=== PATIENT | male | born 1940 | race Caucasian/White ===

== ENCOUNTER 2019-07-16 16:34 | Emergency (ER) | payer MEDICARE ==
[2019-07-16] MEDS ORDERED: Adacel Vial IM ONE ×2 (17:08→17:19)
[2019-07-16] MEDS ORDERED: XYLOCAINE 1%/Epi 1:100000 MDV 20 ML IJ ONE (17:08)
[2019-07-16] MEDS ORDERED: XYLOCAINE 1%/Epi 1:100000 MDV 20 ML ONE (17:08)
--- NOTE | 2019-07-16 17:27 | ERPHSYRPT ---
- History of Present Illness Time Seen by Provider: 07/16/19 17:00 Source: patient Exam Limitations: no limitations Patient Subjective Stated Complaint: pt states that his bowels have moved today but not completely, pt states that he has smears of stool with blood, pt states that he has hemorrhoids bad, pt states that pain 9/10 pain that started today, pt has c/o of urination too, pt states that he see a urologist Triage Nursing Assessment: pt ambulated into the er, pt has hemorrhoid with trouble having bowel movement, pt states he has urinary retention, pt has laceration to the top of the rt hand, laceration measures 1.4 cm x 2 cm, vitals wnl Physician History: Patient has a history of hemorrhoids and he noticed today while straining to have bowel movements he began having pain at his anus and he felt hemorrhoids from what he remembered. While coming to the hospital, he cut the dorsum of his right hand with a direct blow, causing a small flap. Occurred: this afternoon Method of Injury: direct blow Quality: constant Severity of Pain-Max: none (dorsum of right hand) Severity of Pain-Current: moderate (anal area) Extremities Pain Location: hand: right (none currently, he has a cut to his dorsum of his right hand) Modifying Factors: Improves With: rest. Worsens With: movement Associated Symptoms: other (hemorrhoids that flared-up today), No back pain, No chills, No chest discomfort, No chest pain, No dyspnea, No fever, No jaw pain, No nausea, No neck pain, No sweating, No short of breath, No vomiting Allergies/Adverse Reactions: No Known Drug Allergies Allergy (Unverified 07/16/19 16:57) Home Medications: Calcium 500 mg PO DAILY 07/16/19 [History] Lisinopril 10 mg [Zestril 10 MG] 10 mg PO DAILY 07/16/19 [History] Multivitamin [Multivitamins] 1 cap PO DAILY 07/16/19 [History] Hx Tetanus, Diphtheria Vaccination/Date Given: Yes Hx Influenza Vaccination/Date Given: Yes Hx Pneumococcal Vaccination/Date Given: Yes Immunizations Up to Date: Yes - Review of Systems Constitutional: No Fever, No Chills, No Fatigue Eyes: No Eye Pain, No Vision Changes Ears, Nose, & Throat: No Epistaxis, No Mouth Pain, No Painful Swallowing Respiratory: No Cough, No Dyspnea Cardiac: No Chest Pain, No Edema, No Palpitations, No Syncope Abdominal/Gastrointestinal: Constipation, No Abdominal Pain, No Nausea, No Vomiting, No Diarrhea, No Hematemesis, No Hematochezia, No Melena Genitourinary Symptoms: No Dysuria, No Frequency, No Hematuria, No Flank Pain Musculoskeletal: No Back Pain, No Neck Pain Skin: No Pruritis, No Rash Neurological: No Focal Weakness, No Lethargy, No Parasthesia, No Sensory Changes , No Tremors Psychological: No Anxiety Endocrine: No Polydipsia Hematologic/Lymphatic: No Easy Bleeding, No Easy Bruising All Other Systems: Reviewed and Negative - Past Medical History Pertinent Past Medical History: Yes (BPH) Neurological History: No Pertinent History ENT History: Cataracts Cardiac History: No Pertinent History Respiratory History: No Pertinent History Endocrine Medical History: No Pertinent History Musculoskeletal History: No Pertinent History GI Medical History: Hemorrhoids History: Other Psycho-Social History: No Pertinent History Male Reproductive Disorders: Prostate Problems Other Medical History: enlarged prostate - Past Surgical History Past Surgical History: Yes Gastrointestinal: Cholecystectomy - Social History Smoking Status: Former smoker How long have you smoked: 65 Exposure to second hand smoke: No Drug Use: none Patient Lives Alone: No - Nursing Vital Signs Nursing Vital Signs: Initial Vital Signs Temperature 97.1 F 07/16/19 16:44 Pulse Rate 92 H 07/16/19 16:44 Respiratory Rate 20 07/16/19 16:44 Blood Pressure 114/74 07/16/19 16:44 O2 Sat by Pulse Oximetry 93 L 07/16/19 16:44 Pain Scale Pain Intensity 5 - Physical Exam General Appearance: no apparent distress Eyes, Ears, Nose, Throat Exam: pharynx normal, moist mucous membranes Neck Exam: normal inspection, non-tender, supple, full range of motion, No Brudzinski Cardiovascular/Respiratory Exam: chest non-tender, normal breath sounds, regular rate/rhythm, heart sounds normal, no ecchymosis, no respiratory distress Abdominal Exam: non-tender, soft, No no organomegaly, No guarding, No tenderness Back Exam: other (Anorectal exam: multiple external thrombosed hemorrhoids, tender to palpation), No normal inspection, No CVA tenderness, No vertebral tenderness Shoulder Exam: normal inspection, non-tender, no evidence of injury, normal ROM Elbow/Forearm Exam: normal inspection, non-tender, no evidence of injury, normal ROM, No ecchymosis Wrist Exam: normal inspection, non-tender, no evidence of injury, normal ROM, No ecchymosis Hand Exam: normal inspection, non-tender, normal ROM, laceration (2.5 cm superficial flap laceration on the dorsum of the hand with no active bleeding, no contamination ), No abrasions, No bone tenderness, No infection, No limited ROM, No nail injury, No soft tissue tenderness, No swelling Neuro/Tendon Exam: normal sensation, normal motor functions, normal tendon functions, responds to pain, no evidence tendon injury Mental Status Exam: alert, oriented x 3, cooperative Skin Exam: normal color, warm, dry, No rash, No petechiae, No jaundice SpO2 Interpretation: normal SpO2: 93 O2 Delivery: Room Air Procedures - Laceration/Wound Repair Right Dorsal Hand Wound Location: Right, hand Wound Length (cm): 2.5 Wound's Depth, Shape: superficial, flap Wound Explored: clean Irrigated: Yes Hibiclens Prep: Yes Volume Anesthetic (ccs): 0 Wound Debrided: none Wound Repaired With: Dermabond Layer Closure?: No Sterile Dressing Applied?: Yes Splint Applied?: No Sling Applied?: No - Additional Procedures Progress: After informed consent obtained, Local anesthesia performed using 1% lidocaine with epinephrine, with a total of 3 mL used into 3 separate external hemorrhoids. One small incision was made individually into each of the 3 external thrombosed hemorrhoids, with evacuation of small clots and blood. Bleeding controlled with 4 x 4 gauze. Patient tolerated procedure well, no complications. - Course Nursing assessment & vital signs reviewed: Yes Ordered Tests: Medication Summary Generic Name Dose Route Start Last Admin Trade Name Freq PRN Reason Stop Dose Admin Docusate Sodium 100 mg 07/17/19 10:00 Colace 100 Mg PO 08/16/19 09:59 DAILY JESSY Discontinued Medications Generic Name Dose Route Start Last Admin Trade Name Freq PRN Reason Stop Dose Admin Diphtheria/Tetanus/Acell Pertussis 0.5 ml 07/16/19 17:08 07/16/19 17:24 Adacel Vial IM 07/16/19 17:09 0.5 ml .ONCE ONE Administration Diphtheria/Tetanus/Acell Pertussis Confirm 07/16/19 17:19 Adacel Vial Administered 07/16/19 17:20 Dose 0.5 ml IM .STK-MED ONE Docusate Sodium Confirm 07/16/19 17:31 Colace 100 Mg Administered 07/16/19 17:32 Dose 100 mg .ROUTE .STK-MED ONE Lidocaine/Epinephrine 5 ml 07/16/19 17:08 07/16/19 17:23 Xylocaine 1%/Epi 1:[id number] Mdv 20 Ml IJ 07/16/19 17:09 5 ml STAT ONE Administration Lidocaine/Epinephrine Confirm 07/16/19 17:08 Xylocaine 1%/Epi 1:232620 Mdv 20 Ml Administered 07/16/19 17:09 Dose 1 ml .ROUTE .STK-MED ONE - Progress Progress: improved Progress Note: 07/16/19 17:28 Patient feeling better after Lidocaine injection and evacuation of clots from hemorrhoids Counseled pt/family regarding: diagnosis, need for follow-up - Departure Departure Disposition: Home Clinical Impression: External thrombosed hemorrhoids Laceration of hand Qualifiers: Encounter type: initial encounter Foreign body presence: without foreign body Laterality: right Qualified Code(s): S61.411A - Laceration without foreign body of right hand, initial encounter Condition: Good Critical Care Time: No Referrals: CASEY AGUILA [Primary Care Provider] - 07/17/19 HOOD SALGUERO MD [ASSOCIATE STAFF] - 07/17/19 (General Surgeon for your reference) Instructions: Hemorrhoids (DC), Laceration Repair With Glue (DC), Hemorrhoidectomy (DC), Tdap Vaccine, How to Do a Sitz Bath Additional Instructions: Do Sitz baths 3 to 4 times a day for the next three days. Try not to strain with bowel movements. Follow-up with General Surgery in the morning of 2018 to continue evaluation and consider treatment options for your hemorrhoids. Take the stool softener as directed. Expect to have some mild bleeding, but if your feel you are bleeding too much and saturating too many 4x4s, return immediately back to the emergency department for immediate re- evaluation. return immediately back to the emergency department if any worse at any time or any new concerning signs or symptoms that were not present at the emergency department occur for immediate reevaluation in the emergency department. Prescriptions: Docusate Sodium 100 mg [Colace 100 MG] 100 mg PO BID #20 cap
[2019-07-16 17:31] VITALS: BP 108/76; PULSE 79
[2019-07-16] MEDS ORDERED: Colace 100 MG ONE (17:31)
[2019-07-16 17:35] VITALS: O2SAT 93
[2019-07-17] MEDS ORDERED: Colace 100 MG PO SCH (10:00)
== END 2019-07-16 17:40 | disposition home or self-care (01) ==
LOC: ED 16:34
DX: K64.5 Perianal venous thrombosis (principal); S61.411A Laceration without foreign body of right hand, initial encounter; W22.8XXA Striking against or struck by other objects, initial encounter; Y93.9 Activity, unspecified; M79.641 Pain in right hand; Z79.899 Other long term (current) drug therapy
CPT/HCPCS: 12001; 90471; 90715; 96372; 99284; A9270-GY

== ENCOUNTER 2019-08-07 16:25 | Emergency (ER) | payer MEDICARE ==
[2019-08-07 16:38] VITALS: BP 158/113; PULSE 82; O2SAT 96
--- NOTE | 2019-08-07 16:48 | ERPHSYRPT ---
- History of Present Illness Time Seen by Provider: 08/07/19 16:35 Source: patient Exam Limitations: no limitations Patient Subjective Stated Complaint: Dr. Burnham instructed the patient to remove his cordoba after 10 days which was today, pt has an enlarged prostated and has pain when he tries to urinate but only dribbles, Dr. Burnham instructed him to come to the ER and have another cordoba placed Triage Nursing Assessment: Pt walked into the ER, hypertensive, rates pain 9.5/ 10 when trying to urinate, pulses normal, lungs clear, no edema, no other issues at this time Physician History: Patient had a cordoba catheter in place for 10 days due to having an enlarged prostate. He removed it today, but has not been able to void well. Patient was referred to the emergency department by his urologist, Dr Burnham, to have placement of another catheter placed. Patient has been dribbling urine without a strong stream throughout the day. Timing/Duration: hour(s) (11), other (after removal of his cordoba catheter on 07/2019 @ 06:00) Quality: other (no pain) Onset Location: suprapubic Pain Radiation: none Severity of Pain-Max: mild Severity of Pain-Current: none Modifying Factors: Worsens With: urinating Associated Symptoms: No abdominal pain, No fever, No chills, No diaphoresis, No nausea, No vomiting, No dysuria, No nocturia, No polyuria, No urinary frequency , No loss of bladder control, No lower back pain, No lumps, No mass, No swelling , No syncope Prior abdominal problems: similar symptoms (had a cordoba catheter in place for [address] Burnham, Urologist) Sexual intercourse history: non-contributory Allergies/Adverse Reactions: No Known Drug Allergies Allergy (Verified 08/07/19 16:37) Home Medications: Calcium 500 mg PO DAILY 07/16/19 [History] Lisinopril 10 mg [Zestril 10 MG] 10 mg PO DAILY 07/16/19 [History] Multivitamin [Multivitamins] 1 cap PO DAILY 07/16/19 [History] Bicalutamide 50 mg PO DAILY 08/07/19 [History] Hx Tetanus, Diphtheria Vaccination/Date Given: Yes Hx Influenza Vaccination/Date Given: Yes Hx Pneumococcal Vaccination/Date Given: Yes - Past Medical History Pertinent Past Medical History: Yes (BPH) Neurological History: No Pertinent History ENT History: Cataracts Cardiac History: No Pertinent History Respiratory History: No Pertinent History Endocrine Medical History: No Pertinent History Musculoskeletal History: No Pertinent History GI Medical History: Hemorrhoids History: Other Psycho-Social History: No Pertinent History Male Reproductive Disorders: Prostate Problems Other Medical History: enlarged prostate - Past Surgical History Past Surgical History: Yes Gastrointestinal: Cholecystectomy - Social History Smoking Status: Former smoker How long have you smoked: 65 Exposure to second hand smoke: No Drug Use: none Patient Lives Alone: No - Review of Systems Constitutional: No Fever, No Chills, No Fatigue Eyes: No Eye Pain, No Vision Changes Ears, Nose, & Throat: No Mouth Swelling, No Throat Swelling, No Painful Swallowing Respiratory: No Cough, No Dyspnea Cardiac: No Chest Pain, No Palpitations, No Syncope Abdominal/Gastrointestinal: No Nausea, No Vomiting, No Diarrhea, No Constipation , No Hematemesis, No Hematochezia, No Melena Genitourinary Symptoms: Frequency, Hesitancy, Urgency, Urinary Retention, No Hematuria, No Flank Pain Musculoskeletal: No Back Pain, No Neck Pain, No Myalgias Skin: No Pruritis, No Rash Neurological: No Dizziness, No Focal Weakness, No Headache, No Sensory Changes Psychological: No Anxiety Endocrine: No Excessive Sweating Hematologic/Lymphatic: No Easy Bleeding, No Easy Bruising All Other Systems: Reviewed and Negative - Nursing Vital Signs Nursing Vital Signs: Initial Vital Signs Temperature 97.6 F 08/07/19 16:30 Pulse Rate 82 08/07/19 16:30 Blood Pressure 158/113 08/07/19 16:30 O2 Sat by Pulse Oximetry 96 08/07/19 16:30 Pain Scale Pain Intensity 9 - Physical Exam General Appearance: no apparent distress, alert Eye Exam: PERRL/EOMI, eyes nml inspection, No scleral icterus, No pale conjunctivae Ears, Nose, Throat Exam: pharynx normal, moist mucous membranes Neck Exam: normal inspection, non-tender, supple, full range of motion, No meningismus, No Brudzinski Respiratory Exam: normal breath sounds, lungs clear, airway intact, No chest tenderness, No respiratory distress, No crackles/rales, No rhonchi, No wheezing , No stridor Cardiovascular Exam: regular rate/rhythm, normal heart sounds, normal peripheral pulses, capillary refill <2 sec Gastrointestinal/Abdomen Exam: soft, normal bowel sounds, No tenderness, No distention, No mass, No guarding, No rebound Male Genital Exam: normal genitalia, no hernia, uncircumcised (examination chaperoned by Saritha Rutherford RN), No bleeding, No epididymal tenderness, No erythema, No hydrocele, No hernia mass, No inguinal tenderness, No scrotum tenderness (R), No scrotum tenderness (L), No testicular tenderness (R), No testicular tenderness (L), No urethral discharge, No circumcised Back Exam: normal inspection, No CVA tenderness, No vertebral tenderness, No rash Extremity Exam: normal inspection, normal range of motion, pelvis stable, No calf tenderness, No fatuma's sign, No swelling Neurologic Exam: alert, oriented x 3, cooperative, research scientist II-XII nml as tested, normal mood/affect, sensation nml Skin Exam: normal color, warm, dry, No rash, No petechiae, No jaundice, No cyanosis Lymphatic Exam: No axilla node tender (R), No inguinal node tender (L) SpO2 Interpretation: normal SpO2: 96 O2 Delivery: Room Air Ordered Tests: Active Orders 24 hr Category Date Time Status Catheter-Waite Cordoba STAT Care 08/07/19 16:42 Active CULTURE,URINE Stat Lab 08/07/19 16:57 Ordered UA W/RFX UR CULTURE Stat Lab 08/07/19 16:57 Completed Medication Summary Generic Name Dose Route Start Last Admin Trade Name Freq PRN Reason Stop Dose Admin Trimethoprim/Sulfamethoxazole 1 tab 08/07/19 17:36 Bactrim Ds Tablet PO 08/07/19 17:37 STAT STA Discontinued Medications Generic Name Dose Route Start Last Admin Trade Name Freq PRN Reason Stop Dose Admin Trimethoprim/Sulfamethoxazole Confirm 08/07/19 17:31 Bactrim Ds Tablet Administered 08/07/19 17:32 Dose 1 tab PO .STK-MED ONE Lab/Rad Data: Laboratory Results 08/07/19 Range/Units 16:57 Urine Color YELLOW (YELLOW) Urine Appearance CLOUDY (CLEAR) Urine pH 6.0 (5-6) Ur Specific Rufus 1.006 (1.005-1.025) Urine Protein 100 (Negative) Urine Ketones NEGATIVE (NEGATIVE) Urine Blood MODERATE (0-5) Mauricio/ul Urine Nitrite POSITIVE (NEGATIVE) Urine Bilirubin NEGATIVE (NEGATIVE) Urine Urobilinogen NEGATIVE (0-1) mg/dL Ur Leukocyte Esterase LARGE (NEGATIVE) Urine WBC (Auto) >100 (0-5) /HPF Urine RBC (Auto) 26-50 (0-2) /HPF U Epithel Cells (Auto) NONE (FEW) /HPF Urine Bacteria (Auto) MODERATE (NEGATIVE) /HPF Urine Mucus (Auto) SLIGHT (NEGATIVE) /HPF Urine Culture Reflexed ORDERED SEPARATELY (NO) Urine Glucose NEGATIVE (NEGATIVE) mg/dL - Progress Progress: improved Progress Note: 08/07/19 16:53 Patient feels much better with the cordoba catheter in place. 150cc of yellow urine returned. 08/07/19 16:55 05/20/2016: Urine Culture: No growth 08/07/19 17:45 Patient feels well. With his symptoms, duration of Cordoba catheter and findings after catheter placement and urinalysis, patient will be treated for a cystitis. Patient does not require inpatient admission at this time. Counseled pt/family regarding: lab results, diagnosis, need for follow-up - Departure Departure Disposition: Home Clinical Impression: Urinary retention, Essential hypertension Acute cystitis Qualifiers: Hematuria presence: without hematuria Qualified Code(s): N30.00 - Acute cystitis without hematuria Condition: Good Critical Care Time: No Referrals: CASEY AGUILA [Primary Care Provider] - 08/09/19 SANTI BURNHAM [COURTESY STAFF] - 08/08/19 Instructions: Urinary Retention (DC), Acute Cystitis (DC), Urinary Tract Infection, Adult (DC), How to Care for Your Cordoba Catheter, Male Additional Instructions: Discharge/Care Plan ANNMARIE KULKARNI was seen on 08/07/19 in the Emergency Room. The patient was counseled regarding Diagnosis and Lab results with need for follow up and when to return to the Emergency Room. Prescriptions given: Discharge Note I have spoken with the patient and/or caregivers. I have explained the patient' s condition, diagnosis and treatment plan based on the information available to me at this time. I have answered the patient's and/or caregiver's questions and addressed any concerns. The patient and/or caregivers have as good understanding of the patient's diagnosis, condition and treatment plan as can be expected at this point. The vital signs have been stable. The patient's condition is stable and appropriate for discharge from the emergency department. The patient will pursue further outpatient evaluation with the primary care physician or other designated or consulting physician as outlined in the discharge instructions. The patient and/or caregivers are agreeable to this plan of care and follow-up instructions have been explained in detail. The patient and/or caregivers have received these instruction. The patient/and or caregivers are aware that any significant change in condition or worsening of symptoms should prompt an immediate return to this or the closest emergency department or call [address]. [address] Burnham on 08/08/2019 to discuss how long he wants your Cordoba Catheter in place. Follow-up your urine culture results in 2 days. Prescriptions: Smz/Tmp Ds Tablet [Bactrim Ds Tablet] 1 tab PO Q12H #10 tablet
[2019-08-07 17:26] LABS: Appearance CLOUDY (CLEAR); Bacteria MODERATE /HPF (NEGATIVE); Bilirubin NEGATIVE (NEGATIVE); Blood MODERATE Ery/ul (0-5); Glucose NEGATIVE (NEGATIVE); Ketones NEGATIVE (NEGATIVE); Leukocyte Esterase LARGE (NEGATIVE); Mucus SLIGHT /HPF (NEGATIVE); Nitrite POSITIVE (NEGATIVE); Protein,Urine Dip 100 (Negative); RBC 26-50 /HPF (0-2); Specific Gravity 1.006 (1.005-1.025); Urobilinogen NEGATIVE mg/dL (0-1); WBC >100 /HPF (0-5)
[2019-08-07] MEDS ORDERED: BACTRIM DS TABLET PO ONE ×2 (17:31→17:37)
[2019-08-07] MEDS ORDERED: BACTRIM DS TABLET PO STA (17:36)
== END 2019-08-07 17:51 | disposition home or self-care (01) ==
LOC: ED 16:25
DX: N30.00 Acute cystitis without hematuria (principal); R33.9 Retention of urine, unspecified; I10 Essential (primary) hypertension; Z46.6 Encounter for fitting and adjustment of urinary device
CPT/HCPCS: 51702; 81001; 87077; 87086; 87186; 99284; A9270-GY

== ENCOUNTER 2021-06-24 18:38 | Emergency (ER) | payer MEDICARE ==
[2021-06-24] MEDS ORDERED: Adacel Vial IM ONE ×2 (19:11→19:17)
--- NOTE | 2021-06-24 19:11 | ERPHSYRPT ---
- History of Present Illness Time Seen by Provider: 06/24/21 19:00 Source: patient Exam Limitations: no limitations Patient Subjective Stated Complaint: finger injury Triage Nursing Assessment: Patient ambulated back to ED and transferred self to bed. Patient A+O X3. Patient's skin pink, warm and dry. Patient complains of finger injury during a fall while taking out trash. Patient has open wound to right 3rd finger with bone and tendonis material showing. Patient complains of pain to right hand 3rd digit constant aching pain 8/10. Physician History: Patient is a 81-year-old male presents to our ED for evaluation of a right long finger digit injury. Patient states he was at home taking out the trash when his foot got caught on something causing him to fall forward. Injury occurred just prior to arrival. Pain described as an ache that is localized. No radiation. Patient states there is exposed tendon. No other injuries reported. No BHT or LOC. The fall was not related to any neuro or cardiovascular sy mptomology. The fall was not preceded by chest pain or shortness of breath. No dizziness. No numbness tingling or weakness. Tetanus is not up-to-date. Symptoms are mild to moderate in intensity. Movement worsens symptoms. Pain improved with rest. He voices no other complaints concerns at this time. Occurred: just prior to arrival Method of Injury: fell Quality: constant Severity of Pain-Max: moderate Severity of Pain-Current: mild Extremities Pain Location: 3rd finger: right Modifying Factors: Improves With: immobilization, movement Associated Symptoms: none Allergies/Adverse Reactions: No Known Drug Allergies Allergy (Verified 06/24/21 18:43) Home Medications: Calcium 500 mg PO DAILY 07/16/19 [History] Lisinopril 10 mg [Zestril 10 MG] 10 mg PO DAILY 07/16/19 [History] Multivitamin [Multivitamins] 1 cap PO DAILY 07/16/19 [History] Bicalutamide 50 mg PO DAILY 08/07/19 [History] Hx Tetanus, Diphtheria Vaccination/Date Given: No (unsure) Hx Influenza Vaccination/Date Given: Yes Hx Pneumococcal Vaccination/Date Given: Yes Immunizations Up to Date: Yes Travel Risk - International Travel Have you traveled outside of the country in past 3 weeks: No - Coronavirus Screening Are you exhibiting any of the following symptoms?: No Close contact with a COVID-19 positive Pt in past 14-21 Days: No - Vaccine Status Have you recieved a Covid-19 vaccination: Yes 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: [employer] - Vaccination Dates Date of 2cond Vaccination (if applicable): October 2020 - Review of Systems Constitutional: No Symptoms, No Fever, No Chills Eyes: No Symptoms Ears, Nose, & Throat: No Symptoms Respiratory: No Symptoms, No Cough, No Dyspnea Cardiac: No Symptoms, No Chest Pain, No Edema, No Syncope Abdominal/Gastrointestinal: No Symptoms, No Abdominal Pain, No Nausea, No Vomiting, No Diarrhea Genitourinary Symptoms: No Symptoms, No Dysuria Musculoskeletal: No Symptoms, No Back Pain, No Neck Pain Skin: No Symptoms, No Rash Neurological: No Symptoms, No Dizziness, No Focal Weakness, No Sensory Changes Psychological: No Symptoms Endocrine: No Symptoms Hematologic/Lymphatic: No Symptoms Immunological/Allergic: No Symptoms All Other Systems: Reviewed and Negative - Past Medical History Pertinent Past Medical History: Yes (BPH) Neurological History: No Pertinent History ENT History: Cataracts Cardiac History: No Pertinent History Respiratory History: No Pertinent History Endocrine Medical History: No Pertinent History Musculoskeletal History: No Pertinent History GI Medical History: Hemorrhoids History: Other Psycho-Social History: No Pertinent History Male Reproductive Disorders: Prostate Problems Other Medical History: enlarged prostate - Past Surgical History Past Surgical History: Yes Gastrointestinal: Cholecystectomy - Social History Smoking Status: Former smoker How long have you smoked: 65 Exposure to second hand smoke: No Drug Use: none Patient Lives Alone: No - Nursing Vital Signs Nursing Vital Signs: Initial Vital Signs Temperature 98.2 F 06/24/21 18:44 Pulse Rate 64 06/24/21 18:44 Respiratory Rate 18 06/24/21 18:44 Blood Pressure 159/90 06/24/21 18:44 O2 Sat by Pulse Oximetry 94 L 06/24/21 18:44 Pain Scale Pain Intensity 6 - Physical Exam General Appearance: no apparent distress, alert Eyes, Ears, Nose, Throat Exam: normal ENT inspection, TMs normal, pharynx normal, moist mucous membranes Neck Exam: non-tender, supple Cardiovascular/Respiratory Exam: chest non-tender, normal breath sounds, regular rate/rhythm, heart sounds normal, no respiratory distress Abdominal Exam: non-tender, soft, No guarding, No tenderness Back Exam: normal inspection, normal range of motion, No vertebral tenderness Shoulder Exam: normal inspection, non-tender, no evidence of injury, normal ROM Elbow/Forearm Exam: normal inspection, non-tender, no evidence of injury, normal ROM Wrist Exam: normal inspection, non-tender, no evidence of injury, normal ROM Hand Exam: deformity (Right third digit PIP joint is dorsally dislocated. There is a laceration at its flexor crease with exposed flexor tendon. The digit is neurovascular intact distally. Compartments are soft. Cap refill less than 2 seconds.), laceration (There is a laceration at the volar aspect of the right fifth digit just over the PIP joint. This digit is also neurovascular intact distally. Compartments are soft. Cap refill less than 2 seconds. Radial pulse palpable.) Neuro/Tendon Exam: normal sensation, normal motor functions, normal tendon functions Mental Status Exam: alert, oriented x 3, cooperative Skin Exam: normal color, warm, dry SpO2 Interpretation: normal SpO2: 94 O2 Delivery: Room Air Procedures - Joint Reduction Time of Procedure: 19:18 Joint Reduction Site: Right, 3rd digit Conscious Sedation: No Reduction Attempts: 1 Pre-Procedure Neurovascular Exam: neurovascular intact, well perfused, no neuro deficit Post Procedure Neurovascular Exam: neurovascular intact, good alignment Post Joint Reduction Film: no fracture seen Progress: Patient neurovascular intact preprocedure. Patient neurovascular intact post procedure. The hand and fingers are pink warm and well-perfused. - Laceration/Wound Repair Finger Time of Procedure: 19:50 Wound Location: Right (2 cm laceration to the proximal flexor crease right middle finger and distal flexor crease fifth digit.) Wound Length (cm): 2 Wound's Depth, Shape: superficial Wound Explored: clean Irrigated: Yes Hibiclens Prep: Yes Anesthesia: digital block (Digital block of fifth and third digit.) Volume Anesthetic (ccs): 4 Wound Debrided: minimal Wound Repaired With: sutures Suture Size/Type: 5-0 Number of Sutures: 10 Layer Closure?: No Sterile Dressing Applied?: Yes Splint Applied?: Yes Type of Splint Applied: AlumaFoam splinting of both fifth and third digit. Sling Applied?: Yes Progress: Patient neurovascular tact preprocedure. Patient neurovascular tact post procedure. 06/24/21 19:52 - Course Nursing assessment & vital signs reviewed: Yes - Radiology Exams Hand X-ray Interpretation: Interpreted by me (Volar dislocation of third digit PIP joint. There appears to be a small fracture fragment at the base of the middle phalanx volar aspect.) Other X-ray Interpretation: Interpreted by me (Right hand middle finger PIP joint dislocation successfully reduced. Small fracture fragment at base of middle phalanx volar aspect.) Ordered Tests: Active Orders 24 hr Category Date Time Status Splint STAT Care 06/24/21 19:54 Active Wound Care STAT Care 06/24/21 19:47 Active HAND (MINIMUM 3 VIEWS) Stat Exams 06/24/21 Ordered HAND (MINIMUM 3 VIEWS) Stat Exams 06/24/21 18:45 Ordered Medication Summary Discontinued Medications Generic Name Dose Route Start Last Admin Trade Name Freq PRN Reason Stop Dose Admin Bacitracin Zinc 0.9 gm 06/24/21 19:47 06/24/21 19:49 Baciguent Packet TP 06/24/21 19:48 0.9 gm STAT ONE Administration Bacitracin Zinc Confirm 06/24/21 19:48 Baciguent Packet Administered 06/24/21 19:49 Dose 1 gm .ROUTE .STK-MED ONE Diphtheria/Tetanus/Acell Pertussis 0.5 ml 06/24/21 19:11 06/24/21 19:18 Adacel Vial IM 06/24/21 19:12 0.5 ml .ONCE ONE Administration Diphtheria/Tetanus/Acell Pertussis Confirm 06/24/21 19:17 Adacel Vial Administered 06/24/21 19:18 Dose 0.5 ml IM .STK-MED ONE Lidocaine HCl 5 ml 06/24/21 19:16 06/24/21 19:18 Xylocaine 1% Hcl 20 Ml Mdv IJ 06/24/21 19:17 5 ml STAT ONE Administration Lidocaine HCl Confirm 06/24/21 19:17 Xylocaine 1% Hcl 20 Ml Mdv Administered 06/24/21 19:18 Dose 5 ml .ROUTE .STK-MED ONE - Progress Progress: improved Progress Note: 81-year-old male status post mechanical fall. Patient has a dorsally dislocated right third digit PIP joint. Joint was successfully reduced. No fractures. The associated laceration was repaired. Superficial laceration of right fifth digit was also repaired. 5 simple interrupted sutures using 5-0 nylon were used to repair each laceration. Patient neurovascular intact pre and post procedure. Pain well controlled. We will forward a prescription for antibiotic the patient's pharmacy. Patient will be referred to orthopedics for follow-up. Plan of care discussed with patient. He agrees to follow-up with orthopedics tomorrow as recommended. He voices no other complaints concerns at this time. Will discharge home. Portions of this note were created with voice recognition technology. There may be grammatical, spelling, punctuation or sound alike errors 06/24/21 19:23 06/24/21 20:03 Counseled pt/family regarding: diagnosis, need for follow-up, rad results - Departure Departure Disposition: Home Clinical Impression: Fall, Laceration, Finger dislocation Condition: Stable Critical Care Time: No Referrals: VIRY SANCHES MD [Primary Care Provider] - Additional Instructions: Discharge/Care Plan ANNMARIE KULKARNI was seen on 06/24/21 in the Emergency Room. The patient was counseled regarding Diagnosis,Lab results, Imaging studies, need for follow up and when to return to the Emergency Room. Prescriptions given: Discharge Note I have spoken with the patient and/or caregivers. I have explained the patient's condition, diagnosis and treatment plan based on the information available to me at this time. I have answered the patient's and/or caregiver's questions and addressed any concerns. The patient and/or caregivers have as good understanding of the patient's diagnosis, condition and treatment plan as can be expected at this point. The vital signs have been stable. The patient's condition is stable and appropriate for discharge from the emergency department. The patient will pursue further outpatient evaluation with the primary care physician or other designated or consulting physician as outlined in the discharge instructions. The patient and/or caregivers are agreeable to this plan of care and follow-up instructions have been explained in detail. The patient and/or caregivers have received these instruction. The patient/and or caregivers are aware that any significant change in condition or worsening of symptoms should prompt an immediate return to this or the closest emergency department or call 911. Prescriptions: Cephalexin Mh 500 mg [Keflex 500 mg] 500 mg PO TID #21 cap Outpatient Orders: Ortho Referral Time Frame: 1 Day, Facility: [facility] Hosp, Location: ORTHO CLINIC
[2021-06-24] MEDS ORDERED: XYLOCAINE 1% HCL 20 ML MDV IJ ONE (19:16)
[2021-06-24] MEDS ORDERED: XYLOCAINE 1% HCL 20 ML MDV ONE (19:17)
[2021-06-24 19:47] VITALS: BP 127/90; PULSE 65
[2021-06-24] MEDS ORDERED: BACIGUENT PACKET TP ONE (19:47)
[2021-06-24 19:48] VITALS: O2SAT 94
[2021-06-24] MEDS ORDERED: BACIGUENT PACKET ONE (19:48)
--- NOTE | 2021-06-25 08:51 | XRAY ---
Indication: Pain following fall. Comparison: None 2 view right hand demonstrates 3rd PIP dislocation with distal phalanx dislocated posteriorly with soft tissue swelling. Elsewhere osteopenia. Remaining hand unremarkable.
--- NOTE | 2021-06-25 08:55 | XRAY ---
Indication: Post reduction. Comparison: Taken earlier in the day. 3 view right hand demonstrates successful reduction of 3rd PIP dislocation with new finding tiny avulsion type fracture base 3rd middle phalanx. No other bony, articular, or soft tissue abnormalities.
== END 2021-06-24 20:15 | disposition home or self-care (01) ==
LOC: ED 18:38
DX: W01.0XXA Fall on same level from slipping, tripping and stumbling without subsequent striking against object, initial encounter (principal); S63.282A Dislocation of proximal interphalangeal joint of right middle finger, initial encounter
CPT/HCPCS: 12001; 26770; 73130; 90471; 90715; 96372; 99284; A4570; A9270-GY

== ENCOUNTER 2023-04-05 07:58 | Emergency (ER) | payer MEDICARE ==
[2023-04-05 08:09] VITALS: O2SAT 91
[2023-04-05] MEDS ORDERED: TORAdol 30 mg Injection IM ONE (08:17)
[2023-04-05] MEDS ORDERED: TORAdol 30 mg Injection ONE (08:20)
--- NOTE | 2023-04-05 08:23 | ERPHSYRPT ---
- History of Present Illness Source: patient Exam Limitations: no limitations Patient Subjective Stated Complaint: Pt states "I fell on wednesday and I cannot take the pain anymore. My left shoulder and my right ribs are killing me." Triage Nursing Assessment: PT presented alert and oriented X 3, skin pwd. Pt slightly tachypneic. PT has tenderness and pain noted to his left shoulder and right posterior ribs. Physician History: 83 yo WM fell at home 2 days ago and complains of severe L shoulder pain and R lateral/posterior thoracic pain. He denies head injury/headache/cervical pain/T and L-spine pain/hip pain-lower extremity pain. Pain is worse w movement and deep breaths. He currently denies non-traumatic chest pain/dyspnea/focal weakness. Occurred: days ago (2 days ago) Reason for Fall: lost balance Injuries/Pain Location: upper extremity, chest Loss of Consciousness: no loss of consciousness Quality: aching, sharpness Severity of Pain-Max: severe Severity of Pain-Current: severe Modifying Factors: Improves With: movement Associated Symptoms (Fall): denies symptoms Allergies/Adverse Reactions: No Known Drug Allergies Allergy (Verified 06/24/21 18:43) Home Medications: Calcium 500 mg PO DAILY 07/16/19 [History] Lisinopril 10 mg [Zestril 10 MG] 10 mg PO DAILY 07/16/19 [History] Multivitamin [Multivitamins] 1 cap PO DAILY 07/16/19 [History] Bicalutamide 50 mg PO DAILY 08/07/19 [History] Hx Tetanus, Diphtheria Vaccination/Date Given: No (unsure) Hx Influenza Vaccination/Date Given: Yes Hx Pneumococcal Vaccination/Date Given: Yes Immunizations Up to Date: Yes Travel Risk - International Travel Have you traveled outside of the country in past 3 weeks: No - Coronavirus Screening Are you exhibiting any of the following symptoms?: No Close contact with a COVID-19 positive Pt in past 14-21 Days: No - Vaccine Status Have you recieved a Covid-19 vaccination: Yes Crnp: [employer] - Vaccination Dates Date of 2cond Vaccination (if applicable): October 2020 - Review of Systems Constitutional: No Symptoms Eyes: No Symptoms Ears, Nose, & Throat: No Symptoms Respiratory: No Symptoms Cardiac: No Symptoms Abdominal/Gastrointestinal: No Symptoms Genitourinary Symptoms: No Symptoms Musculoskeletal: No Symptoms, Joint Pain Skin: No Symptoms Neurological: No Symptoms Psychological: No Symptoms Endocrine: No Symptoms Hematologic/Lymphatic: No Symptoms Immunological/Allergic: No Symptoms - Past Medical History Pertinent Past Medical History: Yes (BPH) Neurological History: No Pertinent History ENT History: Cataracts Cardiac History: No Pertinent History Respiratory History: No Pertinent History Endocrine Medical History: No Pertinent History Musculoskeletal History: No Pertinent History GI Medical History: Hemorrhoids History: Other Psycho-Social History: No Pertinent History Male Reproductive Disorders: Prostate Problems Other Medical History: enlarged prostate - Past Surgical History Past Surgical History: Yes Gastrointestinal: Cholecystectomy - Social History Smoking Status: Former smoker How long have you smoked: 65 Exposure to second hand smoke: No Drug Use: none Patient Lives Alone: No Significant Family History: no pertinent family hx - Nursing Vital Signs Nursing Vital Signs: Initial Vital Signs Temperature 97.4 F 04/05/23 08:03 Pulse Rate 86 04/05/23 08:03 Respiratory Rate 24 04/05/23 08:03 Blood Pressure 146/82 04/05/23 08:03 O2 Sat by Pulse Oximetry 91 L 04/05/23 08:03 Pain Scale Pain Intensity 4 Hypertensive/Borderline sats - Bryan Coma Score Best Eye Response (Bryan): (4) open spontaneously Best Verbal Response (Brianna): (5) oriented Best Motor Response (Bryan): (6) obeys commands Brianna Total: 15 - Physical Exam General Appearance: no apparent distress Head Injury: no evidence of injury Eye Exam: PERRL/EOMI, eyes nml inspection ENT Exam: airway nml, No evidence of ENT injury, No clear fluid (ears), No clear fluid (nose) Neck Exam: supple, trachea midline, other (C-spine NTTP) Respiratory/Chest Exam: chest tenderness (R lateral thoracic TTP), normal breath sounds, No respiratory distress Cardiovascular Exam: normal heart sounds, regular rate/rhythm, normal peripheral pulses, No murmur Gastrointestinal Exam: soft, normal bowel sounds, No tenderness Back Exam: normal inspection, normal range of motion, No CVA tenderness, No vertebral tenderness (No t or L-spine TTP) Extremity Exam: capillary refill <3 sec, pelvis stable, other (L posterior shoulder TTP) Peripheral Pulses: carotid (R): 2+, carotid (L): 2+ Neurologic Exam: alert, oriented x 3, cooperative, tracer clerk II-XII nml as tested, normal mood/affect, nml cerebellar function, nml station & gait, sensation nml, No motor deficits, No sensory deficit Skin Exam: normal color, warm, dry SpO2 Interpretation: borderline oxygenation SpO2: 91 O2 Delivery: Room Air - Radiology Exams Shoulder X-ray Interpretation: Reviewed by me (L shoulder neg) - CT Exams Chest CT Interpretation: Discussed w/radiologist (R 10th rib fx w pulmonary contusion/Interstitial lung disease/COPD), Tele-radiologist Report Ordered Tests: Active Orders 24 hr Category Date Time Status CHEST WITHOUT CONTRAST [CT] Stat Exams 04/05/23 08:17 Completed SHOULDER Stat Exams 04/05/23 08:45 Completed Incentive Spirometry UD RT 04/05/23 10:14 Completed Medication Summary Discontinued Medications Generic Name Dose Route Start Last Admin Trade Name Freq PRN Reason Stop Dose Admin Ketorolac Tromethamine 15 mg 04/05/23 08:17 04/05/23 08:21 Ketorolac Tromethamine 30 Mg/Ml Inj IM 04/05/23 08:18 15 mg STAT ONE Administration Ketorolac Tromethamine Confirm 04/05/23 08:20 Ketorolac Tromethamine 30 Mg/Ml Inj Administered 04/05/23 08:21 Dose 30 mg .ROUTE .STK-MED ONE - Progress Progress Note: 04/05/23 10:11 Nursing note and vital signs reviewed No food or housing insecurities noted Pain improved w 15mg IM Toradol XR/CT results reviewed and shared w pt Incentive spirometer and teaching per RT Pt has borderline sats but has pulmonary fibrosis and states that he is at baseline and wants to go home Medical Desision Making - Diagnostic Testing Radiological Interpretation: Reviewed by me, Teleradiologist Report - Risk of complications The pt has a mod risk of morbidity or mortality based on: Need for prescription drug management - Departure Departure Disposition: Home Clinical Impression: Rib fracture, Contusion of shoulder, right, Pulmonary contusion Condition: Stable Critical Care Time: No Referrals: VIRY SANCHES MD [Primary Care Provider] - Follow up/PCP as directed Instructions: Contusion (DC), Preventing falls in adults Additional Instructions: Cough and deep breaths Pain meds as needed(Stool softener w pain meds) Activity as tolerated(Do not lie around) Follow up with your family MD Return to ER for increasing shortness of breath, temperature greater than 100.5, or increasing pain Use incentive spirometer every 4 hours Prescriptions: Hydrocodone/Acetaminophen [Hydrocodone-Acetamin 5-325 mg] 1 tab PO Q4HPRN PRN #10 tablet MDD 4 PRN Reason: Pain
--- NOTE | 2023-04-05 09:18 | XRAY ---
CLINICAL HISTORY:Fall. COMPARISON:None. TECHNIQUES:X-ray of left shoulder, AP, lateral and external rotation views. FINDINGS: No evidence of fracture or dislocation noted. Normal bone density seen. Normal glenohumeral articulation and joint spaces seen. Degenerative changes are noted at acromioclavicular joint. IMPRESSION: 1. No evidence of fracture or dislocation. 2. Degenerative changes are noted at acromioclavicular joint. DISCLAIMER: A subtle bone abnormality or fracture may not be readily apparent on x-rays, thus clinical correlation and further imaging including follow-up CT, MRI, or follow-up x-rays are advised as needed. Electronically Signed by: Flor Montanez MD. (04/05/2023 08:06:47 CONE TENDER)
--- NOTE | 2023-04-05 09:56 | XRAY ---
CLINICAL HISTORY:Fall COMPARISON:None; TECHNIQUES:Contiguous 3.[address] images of the chest were acquired without administration of intravenous contrast. Coronal and sagittal reconstructions were obtained. FINDINGS: Centrilobular emphysema is seen in both lungs, predominantly involving both upper lobes. Interlobular septal thicking, traction bronchiectasis and mild honeycombing is seen in both lower lobes, more on left side. Mild buckling is noted along the posterior aspect of right 10th rib associated with a triangular area of opacification is seen in the subpleural region of right lower lobe with air bronchogram within it. An enlarged lymph node measuring 20 x 13mm is seen in the mediastinum, along the anterior paratracheal region. Calcification is seen in right hilar region, likely representing calcified lymph node. Few tiny areas of nodular thickening are seen in the region of trachea, possibly representing mucus plugs. Heart size is normal, and there is no pericardial effusion. No pathologically enlarged axillary lymph node identified. There is no definite mass lesion in the chest wall. Degenerative changes seen in the visualized spine no other bony abnormality is detected. Benign looking lucent lesion with surrounding sclerotic rim is seen in the T7 vertebral body. The rest of scanned upper abdomen shows bilateral renal cortical cysts and hypodense, lobulated lesion ( HU - 8 ) in the peripancreatic region, measuring 29 x 29 mm - possible lymph node or cyst - suggested contrast-enhanced CT abdomen for further evaluation. IMPRESSION: 1. Centrilobular emphysema. 2. Interlobular septal thicking, traction bronchiectasis and mild honeycombing is seen in both lower lobes, more on left side likely representing interstitial disease process -suggested HRCT for further evaluation. 3. Mild buckling noted along the posterior aspect of right 10th rib associated with a triangular area of opacification in the subpleural region of right lower lobe with air bronchogram within it, suggestive of pulmonary contusion associated with a hairline fracture of right posterior 10th rib. Clinical correlation is suggested. [facility] ER was called at [phone] at 9:49 AM EST, 04/05/2023 and results were verbally communicated to Dr. English. Electronically Signed by: Flor Montanez MD. (04/05/2023 08:50:27 SENIOR [employer] WE[employer] DEVELOPER)
[2023-04-05 10:16] VITALS: BP 108/72; PULSE 54
== END 2023-04-05 10:32 | disposition home or self-care (01) ==
LOC: ED 07:58
DX: S40.012A Contusion of left shoulder, initial encounter (principal); S27.321A Contusion of lung, unilateral, initial encounter; S22.31XA Fracture of one rib, right side, initial encounter for closed fracture; W19.XXXA Unspecified fall, initial encounter; Z79.891 Long term (current) use of opiate analgesic; Z79.899 Other long term (current) drug therapy
CPT/HCPCS: 71250; 73030; 96372; 99284; J1885

== ENCOUNTER 2024-01-18 03:00 | Observation (INO) | payer MEDICARE ==
[2024-01-18] MEDS ORDERED: Sodium Chloride 0.9% 1000 ML 1,000 ML ONE (03:29)
[2024-01-18] MEDS: Sodium Chloride 0.9% 1000 ML 1,000 ML IV STA (03:32)
[2024-01-18 03:37] LABS: Absolute Neutrophil Ct (ANC) 8.61 x10^3/uL (1.4-6.9); BASOPHIL % 0.2 % (0.0-0.4); Basophil (Absolute #) 0.02 x10^3/uL (0-0.4); Eosinophil % 3.2 % (0.00-5.0); Eosinophil (Absolute #) 0.37 x10^3/uL (0-0.5); Hematocrit 32.6 % (42-50); IMMATURE GRAN # 0.06 x10^3u/L (0.00-0.03); IMMATURE GRAN % 0.5 % (0.00-0.4); Lymphocyte (Absolute #) 1.16 x10^3/uL (1.0-4.6); Mean Cell Volume 96.2 fL (78-100); Mean Corpuscular Hemoglobin 32.4 pg (26-32); Mean Corpuscular Hgb Concent. 33.7 g/dL (32-36); Mean Platelet Volume 9.7 fL (7.5-11.0); Monocyte (Absolute #) 1.35 x10^3/uL (0.0-1.3); Monocytes % 11.7 % (0.0-12.0); Neutrophil % 74.4 % (36.0-66.0); Platelet Count 291 x10^3/uL (150-450); Red Blood Count 3.39 x10^6/uL (4.1-5.6); Red Cell Distribution Width 13.4 % (11.5-14.0); White Blood Count 11.6 x10^3/uL (4.0-10.5)
[2024-01-18 03:54] LABS: ALBUMIN 2.8 g/dL (3.5-5.0); BILIRUBIN,TOTAL 0.8 mg/dL (0.2-1.3); Calcium 9.2 mg/dL (8.4-10.2); EST GLOMERULAR FILTRATION RATE 73.8 ML/MIN; Potassium 3.4 mmol/L (3.5-5.1); Total Protein 6.6 g/dL (6.3-8.2)
[2024-01-18 03:58] LABS: Appearance Clear (Clear); Bacteria None Seen /HPF (None Seen); Bilirubin Negative (Negative); Blood Negative (Negative); Epithelial Cells None Seen /HPF (None Seen); Glucose, Urine Negative (Negative); Ketones Negative (Negative); Leukocyte Esterase Moderate (Negative); Nitrite Negative (Negative); Ph 5.5 (4.6-8.0); Protein,Urine Dip Trace (Negative); RBC 0-2 /HPF (0-5); Specific Gravity 1.015 (1.005-1.030); Urobilinogen 0.2 mg/dL (0.2)
--- NOTE | 2024-01-18 03:58 | ERPHSYRPT ---
- History of Present Illness Time Seen by Provider: 01/18/24 03:02 Source: patient Exam Limitations: no limitations Patient Subjective Stated Complaint: pt got up to use the bathroom and was too weak so lowered self down to floor, had to call ambulance for lift assist Triage Nursing Assessment: pt presented to ED via SCAT 1, pt alert and oriented x3, skin pale, warm and dry, pt went to bathroom and felt weak so lowered self to ground and called ambulance, pt has hx of prostate CA, pt c/o L knee pain Physician History: Patient here with weakness. Patient got up to go to the bathroom in the [place] and attempted to get to the bathroom. Shelter there he felt extremely weak. States that overcame him somewhat suddenly feeling very short of breath. Lowered himself to the ground and called an ambulance for lift assist. When ambulance got there they felt he looked pale and was short of breath. Therefore they brought him to the emergency department. He did not fully fall, did not hit his head. He is not on any blood thinners. He has some very mild left knee pain. However no other injuries. Otherwise in his normal state of health. Allergies/Adverse Reactions: No Known Drug Allergies Allergy (Verified 01/18/24 03:02) Home Medications: Lisinopril 10 mg [Zestril 10 MG] 10 mg PO DAILY 07/16/19 [History] Multivitamin [Multivitamins] 1 cap PO DAILY 07/16/19 [History] Haja/D3/Mag11/Zinc/Dump Attendant/Ernesto/Bor [Caltrate 600+D Plus Tablet] 1 tab PO DAILY 01/18/24 [History] Enzalutamide [Xtandi] 80 mg PO UD 01/18/24 [History] Hx Tetanus, Diphtheria Vaccination/Date Given: No (unsure) Hx Influenza Vaccination/Date Given: Yes Hx Pneumococcal Vaccination/Date Given: Yes Immunizations Up to Date: Yes Travel Risk - International Travel Have you traveled outside of the country in past 3 weeks: No - Emerging Infectious Disease Are you exhibiting symptoms associated with any current EIDs: No - Past Medical History Pertinent Past Medical History: Yes (BPH) Neurological History: No Pertinent History ENT History: Cataracts Cardiac History: Hypertension Respiratory History: No Pertinent History Endocrine Medical History: No Pertinent History Musculoskeletal History: Other GI Medical History: Hemorrhoids History: Other Psycho-Social History: No Pertinent History Male Reproductive Disorders: Prostate Problems Other Medical History: enlarged prostate, prostate CA - Past Surgical History Past Surgical History: Yes Neuro Surgical History: No Pertinent History Cardiac: No Pertinent History Respiratory: No Pertinent History Gastrointestinal: Cholecystectomy Genitourinary: No Pertinent History Musculoskeletal: No Pertinent History Male Surgical History: No Pertinent History Significant Family History: no pertinent family hx - Social History Smoking Status: Former smoker How long have you smoked: 65 Exposure to second hand smoke: No Drug Use: none Patient Lives Alone: No - Nursing Vital Signs Nursing Vital Signs: Initial Vital Signs Temperature 98 F 01/18/24 03:03 Pulse Rate 81 01/18/24 03:03 Respiratory Rate 24 01/18/24 03:03 Blood Pressure 95/66 01/18/24 03:03 O2 Sat by Pulse Oximetry 97 01/18/24 03:03 Pain Scale Pain Intensity 0 - Physical Exam SpO2 Interpretation: normal SpO2: 97 Comments: 01/18/24 03:55 Review of Systems Constitutional: Negative for fever. Fatigue, weakness HENT: Negative for congestion. Respiratory: Shortness of breath Cardiovascular: Negative for chest pain. Gastrointestinal: Negative for abdominal pain. Genitourinary: Negative for dysuria. Musculoskeletal: Negative for back pain. Skin: Negative for rash. Neurological: Negative for headaches. Psychiatric/Behavioral: Negative for behavioral problems. All other systems reviewed and are negative. Physical Exam Vitals signs and nursing note reviewed. Constitutional: Appearance: Patient is well-developed. HENT: Head: Normocephalic and atraumatic. Eyes: Conjunctiva/sclera: Conjunctivae normal. Neck: Musculoskeletal: Normal range of motion. Trachea: No tracheal deviation. Cardiovascular: Rate and Rhythm: Normal rate. Pulmonary: Effort: Pulmonary effort is normal. Crackles throughout lower lungs, on 2 L of oxygen in the room Abdominal: Palpations: Abdomen is soft. Musculoskeletal: General: No deformity. Mild left knee abrasion. No obvious deformity, sensation intact, 2+ capillary refill, 2 point tactile discrimination intact. 5 out of 5 strength. Full range of motion without pain. Compartments are soft, nontender. Overlying skin shows no tenting, bruising, ecchymosis. Skin: General: Skin is warm and dry. Neurological/ Psychiatric: Mental Status: Mental status, behavior, interaction with environment is appropriate for patient's age and condition. Generalized weakness without specific findings 01/18/24 05:10 01/18/24 05:13 - Course Nursing assessment & vital signs reviewed: Yes EKG Interpreted by Me: Sinus Rhythm (Sinus rhythm, rate of 85, PA interval 178, QRS 108, QTc is 455, no STEMI) Ordered Tests: Active Orders 24 hr Category Date Time Status Call Admit Doctor for Orders ON ADMISSION Care 01/18/24 05:05 Active Code Status Order ROUTINE Care 01/18/24 05:05 Active EKG-ER Only STAT Care 01/18/24 03:19 Active IV Insertion STAT Care 01/18/24 03:[address] in Observation ROUTINE Care 01/18/24 05:05 Active House Regular Diet Diet 01/18/24 Breakfast Active CHEST 1 VIEW (PORTABLE) Stat Exams 01/18/24 03:20 Completed AMYLASE Stat Lab 01/18/24 03:34 Completed CBC W DIFF Stat Lab 01/18/24 03:34 Completed CMP Stat Lab 01/18/24 03:34 Completed CULTURE,URINE Stat Lab 01/18/24 03:45 Received LIPASE Stat Lab 01/18/24 03:34 Completed Lactic Acid Stat Lab 01/18/24 03:31 Completed PROCALCITONIN Stat Lab 01/18/24 04:00 Completed TROPONIN Q4H Lab 01/18/24 03:34 Completed TROPONIN Q4H Lab 01/18/24 07:30 Ordered TROPONIN Q4H Lab 01/18/24 11:30 Ordered UA W/RFX UR CULTURE Stat Lab 01/18/24 03:45 Completed Pulse Oximetry CONTINUOUS RT 01/18/24 05:05 Active Respiratory Therapy Consult ONCE RT 01/18/24 05:05 Active Transfer Order Routine Transfer 01/18/24 Ordered Medication Summary Generic Name Dose Route Start Last Admin Trade Name Freq PRN Reason Stop Dose Admin Ceftriaxone Sodium 1 gm in 100 mls @ 200 mls/hr 01/18/24 04:49 01/18/24 05:04 Rocephin 1 Gm / 100 Ml Nacl IV 01/18/24 05:18 200 mls/hr STAT ONE 200 mls/hr Administration Azithromycin 500 mg in 250 mls @ 250 mls/hr 01/18/24 04:50 Zithromax 500 Mg/ 250 Ml Nacl Premix IV 01/18/24 05:49 STAT ONE Discontinued Medications Generic Name Dose Route Start Last Admin Trade Name Braeden PRN Reason Stop Dose Admin Sodium Chloride 1,000 mls @ 999 mls/hr 01/18/24 03:19 01/18/24 05:05 Sodium Chloride 0.9% 1000 Ml IV 01/18/24 04:19 Infused .Q1H1M STA Infusion Sodium Chloride Confirm 01/18/24 03:29 Sodium Chloride 0.9% 1000 Ml Administered 01/18/24 03:30 Dose 1,000 mls @ ud .ROUTE .STK-MED ONE Ceftriaxone Sodium Confirm 01/18/24 05:02 Rocephin 1 Gm / 100 Ml Nacl Administered 01/18/24 05:03 Dose 1 gm in 100 mls @ ud IV .STK-MED ONE Lab/Rad Data: Laboratory Result Diagrams 01/18/24 03:34 01/18/24 03:34 Laboratory Results 01/18/24 01/18/24 01/18/24 Range/Units 04:00 03:45 03:34 WBC (4.0-10.5) x10^3/uL RBC (4.1-5.6) x10^6/uL Hgb (12.5-18.0) g/dL Hct (42-50) % MCV (78-100) fL MCH (26-32) pg MCHC (32-36) g/dL RDW (11.5-14.0) % Plt Count (150-450) x10^3/uL MPV (7.5-11.0) fL Gran % (36.0-66.0) % Immature Gran % (Auto) (0.00-0.4) % Nucleat RBC Rel Count (0.00-0.1) % Eos # (Auto) (0-0.5) x10^3/uL Immature Gran # (Auto) (0.00-0.03) x10^3u/L Absolute Lymphs (auto) (1.0-4.6) x10^3/uL Absolute Monos (auto) (0.0-1.3) x10^3/uL Absolute Nucleated RBC (0.00-0.01) x10^3u/L Lymphocytes % (24.0-44.0) % Monocytes % (0.0-12.0) % Eosinophils % (0.00-5.0) % Basophils % (0.0-0.4) % Absolute Granulocytes (1.4-6.9) x10^3/uL Basophils # (0-0.4) x10^3/uL Sodium (135-145) mmol/L Potassium (3.5-5.1) mmol/L Chloride (98-107) mmol/L Carbon Dioxide (22-30) mmol/L Anion Gap (5-15) MEQ/L BUN (9-20) mg/dL Creatinine (0.66-1.25) mg/dL Estimated GFR ML/MIN Glucose (74-106) mg/dL Lactic Acid (0.4-2.0) Calcium (8.4-10.2) mg/dL Total Bilirubin (0.2-1.3) mg/dL AST (17-59) U/L ALT (0-50) U/L Alkaline Phosphatase (38-126) U/L Troponin I (0.000-0.033) ng/mL Serum Total Protein (6.3-8.2) g/dL Albumin (3.5-5.0) g/dL Amylase (30-110) U/L Lipase (23-300) U/L Procalcitonin 0.192 H (0.030-0.080) ng/mL Urine Color Yellow (Yellow) Urine Appearance Clear (Clear) Urine pH 5.5 (4.6-8.0) Ur Specific Atkins 1.015 (1.005-1.030) Urine Protein Trace A (Negative) Urine Glucose (UA) Negative (Negative) mg/dL Urine Ketones Negative (Negative) Urine Blood Negative (Negative) Urine Nitrite Negative (Negative) Urine Bilirubin Negative (Negative) Urine Urobilinogen 0.2 (0.2) mg/dL Ur Leukocyte Esterase Moderate A (Negative) U Hyaline Cast (Auto) 3-5 A (0-2) /LPF Urine Microscopic RBC 0-2 (0-5) /HPF Urine Microscopic WBC 6-10 A (0-5) /HPF Ur Epithelial Cells None Seen (None Seen) /HPF Urine Bacteria None Seen (None Seen) /HPF Urine Culture Reflexed YES (NO) Influenza Type A Ag NEGATIVE (NEGATIVE) Influenza Type B Ag NEGATIVE (NEGATIVE) RSV (PCR) NEGATIVE (NEGATIVE) SARS-CoV-2 (PCR) NEGATIVE (NEGATIVE) 01/18/24 01/18/24 01/18/24 Range/Units 03:34 03:34 03:34 WBC 11.6 H (4.0-10.5) x10^3/uL RBC 3.39 L (4.1-5.6) x10^6/uL Hgb 11.0 L (12.5-18.0) g/dL Hct 32.6 L (42-50) % MCV 96.2 (78-100) fL MCH 32.4 H (26-32) pg MCHC 33.7 (32-36) g/dL RDW 13.4 (11.5-14.0) % Plt Count 291 (150-450) x10^3/uL MPV 9.7 (7.5-11.0) fL Gran % 74.4 H (36.0-66.0) % Immature Gran % (Auto) 0.5 H (0.00-0.4) % Nucleat RBC Rel Count 0.0 (0.00-0.1) % Eos # (Auto) 0.37 (0-0.5) x10^3/uL Immature Gran # (Auto) 0.06 H (0.00-0.03) x10^3u/L Absolute Lymphs (auto) 1.16 (1.0-4.6) x10^3/uL Absolute Monos (auto) 1.35 H (0.0-1.3) x10^3/uL Absolute Nucleated RBC 0.00 (0.00-0.01) x10^3u/L Lymphocytes % 10.0 L (24.0-44.0) % Monocytes % 11.7 (0.0-12.0) % Eosinophils % 3.2 (0.00-5.0) % Basophils % 0.2 (0.0-0.4) % Absolute Granulocytes 8.61 H (1.4-6.9) x10^3/uL Basophils # 0.02 (0-0.4) x10^3/uL Sodium 134 L (135-145) mmol/L Potassium 3.4 L (3.5-5.1) mmol/L Chloride 106 (98-107) mmol/L Carbon Dioxide 21 L (22-30) mmol/L Anion Gap 11.0 (5-15) MEQ/L BUN 22 H (9-20) mg/dL Creatinine 1.00 (0.66-1.25) mg/dL Estimated GFR 73.8 ML/MIN Glucose 111 H (74-106) mg/dL Lactic Acid (0.4-2.0) Calcium 9.2 (8.4-10.2) mg/dL Total Bilirubin 0.80 (0.2-1.3) mg/dL AST 26 (17-59) U/L ALT 13 (0-50) U/L Alkaline Phosphatase 121 (38-126) U/L Troponin I < 0.012 (0.000-0.033) ng/mL Serum Total Protein 6.6 (6.3-8.2) g/dL Albumin 2.8 L (3.5-5.0) g/dL Amylase 67 (30-110) U/L Lipase 81 (23-300) U/L Procalcitonin (0.030-0.080) ng/mL Urine Color (Yellow) Urine Appearance (Clear) Urine pH (4.6-8.0) Ur Specific Atkins (1.005-1.030) Urine Protein (Negative) Urine Glucose (UA) (Negative) mg/dL Urine Ketones (Negative) Urine Blood (Negative) Urine Nitrite (Negative) Urine Bilirubin (Negative) Urine Urobilinogen (0.2) mg/dL Ur Leukocyte Esterase (Negative) U Hyaline Cast (Auto) (0-2) /LPF Urine Microscopic RBC (0-5) /HPF Urine Microscopic WBC (0-5) /HPF Ur Epithelial Cells (None Seen) /HPF Urine Bacteria (None Seen) /HPF Urine Culture Reflexed (NO) Influenza Type A Ag (NEGATIVE) Influenza Type B Ag (NEGATIVE) RSV (PCR) (NEGATIVE) SARS-CoV-2 (PCR) (NEGATIVE) 01/18/24 Range/Units 03:31 WBC (4.0-10.5) x10^3/uL RBC (4.1-5.6) x10^6/uL Hgb (12.5-18.0) g/dL Hct (42-50) % MCV (78-100) fL MCH (26-32) pg MCHC (32-36) g/dL RDW (11.5-14.0) % Plt Count (150-450) x10^3/uL MPV (7.5-11.0) fL Gran % (36.0-66.0) % Immature Gran % (Auto) (0.00-0.4) % Nucleat RBC Rel Count (0.00-0.1) % Eos # (Auto) (0-0.5) x10^3/uL Immature Gran # (Auto) (0.00-0.03) x10^3u/L Absolute Lymphs (auto) (1.0-4.6) x10^3/uL Absolute Monos (auto) (0.0-1.3) x10^3/uL Absolute Nucleated RBC (0.00-0.01) x10^3u/L Lymphocytes % (24.0-44.0) % Monocytes % (0.0-12.0) % Eosinophils % (0.00-5.0) % Basophils % (0.0-0.4) % Absolute Granulocytes (1.4-6.9) x10^3/uL Basophils # (0-0.4) x10^3/uL Sodium (135-145) mmol/L Potassium (3.5-5.1) mmol/L Chloride (98-107) mmol/L Carbon Dioxide (22-30) mmol/L Anion Gap (5-15) MEQ/L BUN (9-20) mg/dL Creatinine (0.66-1.25) mg/dL Estimated GFR ML/MIN Glucose (74-106) mg/dL Lactic Acid 2.1 H (0.4-2.0) Calcium (8.4-10.2) mg/dL Total Bilirubin (0.2-1.3) mg/dL AST (17-59) U/L ALT (0-50) U/L Alkaline Phosphatase (38-126) U/L Troponin I (0.000-0.033) ng/mL Serum Total Protein (6.3-8.2) g/dL Albumin (3.5-5.0) g/dL Amylase (30-110) U/L Lipase (23-300) U/L Procalcitonin (0.030-0.080) ng/mL Urine Color (Yellow) Urine Appearance (Clear) Urine pH (4.6-8.0) Ur Specific Atkins (1.005-1.030) Urine Protein (Negative) Urine Glucose (UA) (Negative) mg/dL Urine Ketones (Negative) Urine Blood (Negative) Urine Nitrite (Negative) Urine Bilirubin (Negative) Urine Urobilinogen (0.2) mg/dL Ur Leukocyte Esterase (Negative) U Hyaline Cast (Auto) (0-2) /LPF Urine Microscopic RBC (0-5) /HPF Urine Microscopic WBC (0-5) /HPF Ur Epithelial Cells (None Seen) /HPF Urine Bacteria (None Seen) /HPF Urine Culture Reflexed (NO) Influenza Type A Ag (NEGATIVE) Influenza Type B Ag (NEGATIVE) RSV (PCR) (NEGATIVE) SARS-CoV-2 (PCR) (NEGATIVE) - Progress Progress: improved Progress Note: 01/18/24 03:56 Differential diagnosis includes: PNA, STEMI, NSTEMI, other infection, musculoskeletal pain, pneumothorax - We'll obtain basic labs, fluids, EKG, troponin, chest x-ray - EKG shows no ST changes - my read - O2 saturations consistently greater than 95% on 2 L 01/18/24 05:11 Reevaluation: Patient got up to use the commode and immediately dropped his sats to 82%. He was replaced on 2 L of oxygen. His sats did come up to 93. Sitting in bed he is able to rest more comfortably. Chest x-ray does demonstrate bilateral lower lobe pneumonia. This is consistent with his physical exam which demonstrates lower lung crackles. Patient has elevated lactic acid, procalcitonin also consistent with infection. Patient started on 1 L of fluid. Patient started on ceftriaxone and azithromycin. Patient is hypoxic with lower lobe pneumonia, therefore I do feel he needs to be admitted to the hospital. Discussed over the phone with on-call hospitalist, Dr. Green. He did accept patient for admission. I did discuss this with the patient and the family. They feel comfortable with this. Discussed with : Charis Counseled pt/family regarding: lab results, diagnosis, need for follow-up, rad results Medical Desision Making - Independent Historian Additional History obtained from: Spouse - External Record(s) Reviewed Records reviewed as a part of evaluation & management: Discharge Summary - Discussion of managment Care discussed with:: hospitalist Reviewed:: Test results, Need for additional workup Agreed on:: Treatment plan, place in obs Will see patient: in hospital - Diagnostic Testing Diagnostic test were ordered, analyzed, and reviewed by me: Yes Radiological Interpretation: Interpreted by me - Departure Departure Disposition: Observation Clinical Impression: Hypoxic respiratory failure, Lower lobe pneumonia Condition: Stable Critical Care Time: No Referrals: VIRY SANCHES MD [Primary Care Provider] - Follow up/PCP as directed
[2024-01-18 04:02] LABS: ADD URINE CULTURE? YES (NO)
[2024-01-18 04:15] LABS: INFLUENZA A NEGATIVE (NEGATIVE); INFLUENZA B NEGATIVE (NEGATIVE); RESPIRATORY SYNCTIAL VIRUS NEGATIVE (NEGATIVE); SARS-CoV-2 Xpert Express NEGATIVE (NEGATIVE)
--- NOTE | 2024-01-18 04:47 | XRAY ---
CLINICAL HISTORY: PNA COMPARISON: 04/05/2023 TECHNIQUE: x-rays of the chest in frontal view FINDINGS: bilateral lung almanza are hyperinflated with flattening of both to move the diaphragms. Lung markings are not appreciated at the peripheral part of the upper and middle zone on the right side concur with emphysematous changes. emphysematous changes are also seen in the left middle zone. thickening of the right visualized oblique fissure. The bilateral lower zone shows thickening and coarsening of the broncho vascular marking with reticular densities and ground-glass densities. Bilateral costophrenic angles appear within normal limits. Shaggy bilateral heart borders. A metallic artifact/medical authorization specialist is seen along the right lateral chest wall. Vital signs monitor cables projected over the chest. The bony thorax shows spondylotic changes. IMPRESSION: Bilateral emphysematous changes Reticular densities and ground-glass densities along with thickening and coarsening of the broncho vascular markings in lower zones. Reticular densities and ground glass densities are new findings compared to prior CT. These findings might be suggestive of newly developed infectious/inflammatory infiltration. Advise clinical correlation and follow-up. Electronically Signed by: Flor Montanez MD. (01/18/2024 04:44:13 EDT)
[2024-01-18] MEDS ORDERED: ROCEPHIN 1 GM / 100 ML NaCl 1 GM/100 ML IVPB IV ONE (05:02)
[2024-01-18] MEDS: ROCEPHIN 1 GM / 100 ML NaCl 1 GM/100 ML IVPB IV ONE (05:04)
[2024-01-18] MEDS ORDERED: Zithromax 500 MG/ 250 ML NaCl Premix 500 MG/250 ML IVPB IV ONE (05:35)
[2024-01-18] MEDS: Zithromax 500 MG/ 250 ML NaCl Premix 500 MG/250 ML IVPB IV ONE (05:36)
[2024-01-18] MEDS ORDERED: ENZALUTAMIDE 80 MG PO SCH (07:45)
[2024-01-18] MEDS ORDERED: MEDICATION INTERVENTION MC SCH (08:00)
[2024-01-18] MEDS: Sodium Chloride 0.9% 1000 ML 1,000 ML IV SCH (08:34)
[2024-01-18] MEDS: Calcium 500MG W/Vit D Tablet PO SCH (08:36)
[2024-01-18] MEDS: THERAGRAN MULTIVITAMIN PO SCH (08:36)
[2024-01-18] MEDS: Klor Con PO SCH (08:36)
[2024-01-18] MEDS: Zestril 10 MG PO SCH (09:18)
--- NOTE | 2024-01-18 09:41 | PCM.HP ---
History of Present Illness - Chief Complaint Chief Complaint: Lower lobe pneumonia Date: 01/18/24 History of Present Illness: is a 83 year old male with PMHX of BPH, cataracts, HTN, hemorrhoids, and prostate CA. Pt reports he got up to use the bathroom last night and was too weak so lowered self down to floor, had to call ambulance for lift assist. Pt presented to ED with SOB and weakness. He did not fully fall, did not hit his h ead. He is not on any blood thinners. He has some very mild left knee pain. However no other injuries. Otherwise in his normal state of health. he was placed on 2lNC and O2 is 94%. He does not have oxygen at home. CXR + for pneumonia. K+ 3.4 replaced. Repeat lactic acid 1.7, 1 L NS bolus gave in the ER. Continue IVF and antibiotics. Pt denies CP, abd. pain, N/V/D. - Review of Systems Constitutional: No Fever, No Chills Eyes: No Symptoms Ears, Nose, & Throat: No Symptoms Respiratory: Short Of Breath, No Cough Cardiac: No Chest Pain, No Edema, No Syncope Abdominal/Gastrointestinal: No Abdominal Pain, No Nausea, No Vomiting, No Diarrhea Genitourinary Symptoms: No Dysuria Musculoskeletal: No Back Pain, No Neck Pain Skin: No Rash Neurological: No Dizziness, No Focal Weakness, No Sensory Changes Psychological: No Symptoms Endocrine: No Symptoms Hematologic/Lymphatic: No Symptoms Immunological/Allergic: No Symptoms Medications & Allergies Home Medications: Home Medication List Lisinopril 10 mg [Zestril 10 MG] 20 mg PO DAILY 07/16/19 [History Confirmed 01/18/24] Multivitamin [Multivitamins] 1 cap PO DAILY 07/16/19 [History Confirmed 01/18/24] Haja/D3/Mag11/Zinc/Knife Operator/Ernesto/Bor [Caltrate 600+D Plus Tablet] 1 tab PO DAILY 01/18/24 [History Confirmed 01/18/24] Enzalutamide [Xtandi] 80 mg PO UD 01/18/24 [History Confirmed 01/18/24] Allergies/Adverse Reactions: Allergies Allergy/AdvReac Type Severity Reaction Status Date / Time No Known Drug Allergies Allergy Verified 01/18/24 03:02 - Past Medical History Past Medical History: Yes (BPH) Neurological History: No Pertinent History ENT History: Cataracts Cardiac History: Hypertension Respiratory History: No Pertinent History Endocrine Medical History: No Pertinent History Musculoskelatal History: Other GI Medical History: Hemorrhoids History: Other Pyscho-Social History: No Pertinent History Male Reproductive Disorders: Prostate Problems Comment: enlarged prostate, prostate CA - Past Surgical History Past Surgical History: Yes Neuro Surgical History: No Pertinent History Cardiac History: No Pertinent History Respiratory Surgery: No Pertinent History GI Surgical History: Cholecystectomy Genitourinary Surgical Hx: No Pertinent History Musculskeletal Surgical Hx: No Pertinent History Male Surgical History: No Pertinent History Significant Family History: no pertinent family hx - Social History Smoking Status: Former smoker How long have you smoked: 65 Exposure to second hand smoke: No Alcohol: None Drug Use: none - Social Determinants of Health Will the patient participate in the screening: Yes Do you worry about a steady place to live?: No Do you have any problems with any of the following?: No known problems In the past 12 months,have you had to go without utilities?: No Have you or anyone in your house had to go without enough: No Transportation Issues: No Has anyone in your support network made you feel unsafe?: No Does the patient want assistance with any of the above?: No - Physical Exam Vital Signs: Vital Signs - 24 hr Temp Pulse Resp BP BP Pulse Ox 01/18/24 07:59 97.5 F 82 14 108/75 95 01/18/24 07:43 82 14 95 01/18/24 06:26 97.5 F 75 20 108/75 94 L 01/18/24 06:00 76 20 102/70 98 01/18/24 05:30 78 18 115/73 97 01/18/24 05:15 97 01/18/24 05:00 72 24 121/79 99 01/18/24 04:30 82 26 H 128/85 94 L 01/18/24 04:00 73 24 110/77 94 L 01/18/24 03:03 98 F 81 24 95/66 97 General Appearance: no apparent distress, alert Neurologic Exam: alert, oriented x 3, cooperative, normal mood/affect, nml cerebellar function, nml station & gait, sensation nml, No motor deficits Eye Exam: PERRL/EOMI, eyes nml inspection Ears, Nose, Throat Exam: normal ENT inspection, TMs normal, pharynx normal, moist mucous membranes Neck Exam: normal inspection, non-tender, supple, full range of motion Respiratory Exam: lungs clear, diminished breath sounds (BLLL), No respiratory distress Cardiovascular Exam: regular rate/rhythm, normal heart sounds, normal peripheral pulses Gastrointestinal/Abdomen Exam: soft, normal bowel sounds, No tenderness, No mass Back Exam: normal inspection, normal range of motion, No CVA tenderness, No vertebral tenderness Extremity Exam: normal inspection, normal range of motion, pelvis stable Skin Exam: normal color, warm, dry, No rash Lymphatic Exam: No adenopathy Results - Labs Lab/Micro Results: Lab Results-Last 24 Hours 01/18/24 01/18/24 01/18/24 Range/Units 03:31 03:34 03:34 WBC 11.6 H (4.0-10.5) x10^3/uL RBC 3.39 L (4.1-5.6) x10^6/uL Hgb 11.0 L (12.5-18.0) g/dL Hct 32.6 L (42-50) % MCV 96.2 (78-100) fL MCH 32.4 H (26-32) pg MCHC 33.7 (32-36) g/dL RDW 13.4 (11.5-14.0) % Plt Count 291 (150-450) x10^3/uL MPV 9.7 (7.5-11.0) fL Gran % 74.4 H (36.0-66.0) % Immature Gran % (Auto) 0.5 H (0.00-0.4) % Nucleat RBC Rel Count 0.0 (0.00-0.1) % Eos # (Auto) 0.37 (0-0.5) x10^3/uL Immature Gran # (Auto) 0.06 H (0.00-0.03) x10^3u/L Absolute Lymphs (auto) 1.16 (1.0-4.6) x10^3/uL Absolute Monos (auto) 1.35 H (0.0-1.3) x10^3/uL Absolute Nucleated RBC 0.00 (0.00-0.01) x10^3u/L Lymphocytes % 10.0 L (24.0-44.0) % Monocytes % 11.7 (0.0-12.0) % Eosinophils % 3.2 (0.00-5.0) % Basophils % 0.2 (0.0-0.4) % Absolute Granulocytes 8.61 H (1.4-6.9) x10^3/uL Basophils # 0.02 (0-0.4) x10^3/uL Sodium 134 L (135-145) mmol/L Potassium 3.4 L (3.5-5.1) mmol/L Chloride 106 (98-107) mmol/L Carbon Dioxide 21 L (22-30) mmol/L Anion Gap 11.0 (5-15) MEQ/L BUN 22 H (9-20) mg/dL Creatinine 1.00 (0.66-1.25) mg/dL Estimated GFR 73.8 ML/MIN Glucose 111 H (74-106) mg/dL Lactic Acid 2.1 H (0.4-2.0) Calcium 9.2 (8.4-10.2) mg/dL Magnesium (1.6-2.3) mg/dL Total Bilirubin 0.80 (0.2-1.3) mg/dL AST 26 (17-59) U/L ALT 13 (0-50) U/L Alkaline Phosphatase 121 (38-126) U/L Troponin I (0.000-0.033) ng/mL Serum Total Protein 6.6 (6.3-8.2) g/dL Albumin 2.8 L (3.5-5.0) g/dL Amylase 67 (30-110) U/L Lipase 81 (23-300) U/L Procalcitonin (0.030-0.080) ng/mL Urine Color (Yellow) Urine Appearance (Clear) Urine pH (4.6-8.0) Ur Specific Donovan (1.005-1.030) Urine Protein (Negative) Urine Glucose (UA) (Negative) mg/dL Urine Ketones (Negative) Urine Blood (Negative) Urine Nitrite (Negative) Urine Bilirubin (Negative) Urine Urobilinogen (0.2) mg/dL Ur Leukocyte Esterase (Negative) U Hyaline Cast (Auto) (0-2) /LPF Urine Microscopic RBC (0-5) /HPF Urine Microscopic WBC (0-5) /HPF Ur Epithelial Cells (None Seen) /HPF Urine Bacteria (None Seen) /HPF Urine Culture Reflexed (NO) Influenza Type A Ag (NEGATIVE) Influenza Type B Ag (NEGATIVE) RSV (PCR) (NEGATIVE) SARS-CoV-2 (PCR) (NEGATIVE) 01/18/24 01/18/24 01/18/24 Range/Units 03:34 03:34 03:45 WBC (4.0-10.5) x10^3/uL RBC (4.1-5.6) x10^6/uL Hgb (12.5-18.0) g/dL Hct (42-50) % MCV (78-100) fL MCH (26-32) pg MCHC (32-36) g/dL RDW (11.5-14.0) % Plt Count (150-450) x10^3/uL MPV (7.5-11.0) fL Gran % (36.0-66.0) % Immature Gran % (Auto) (0.00-0.4) % Nucleat RBC Rel Count (0.00-0.1) % Eos # (Auto) (0-0.5) x10^3/uL Immature Gran # (Auto) (0.00-0.03) x10^3u/L Absolute Lymphs (auto) (1.0-4.6) x10^3/uL Absolute Monos (auto) (0.0-1.3) x10^3/uL Absolute Nucleated RBC (0.00-0.01) x10^3u/L Lymphocytes % (24.0-44.0) % Monocytes % (0.0-12.0) % Eosinophils % (0.00-5.0) % Basophils % (0.0-0.4) % Absolute Granulocytes (1.4-6.9) x10^3/uL Basophils # (0-0.4) x10^3/uL Sodium (135-145) mmol/L Potassium (3.5-5.1) mmol/L Chloride (98-107) mmol/L Carbon Dioxide (22-30) mmol/L Anion Gap (5-15) MEQ/L BUN (9-20) mg/dL Creatinine (0.66-1.25) mg/dL Estimated GFR ML/MIN Glucose (74-106) mg/dL Lactic Acid (0.4-2.0) Calcium (8.4-10.2) mg/dL Magnesium (1.6-2.3) mg/dL Total Bilirubin (0.2-1.3) mg/dL AST (17-59) U/L ALT (0-50) U/L Alkaline Phosphatase (38-126) U/L Troponin I < 0.012 (0.000-0.033) ng/mL Serum Total Protein (6.3-8.2) g/dL Albumin (3.5-5.0) g/dL Amylase (30-110) U/L Lipase (23-300) U/L Procalcitonin (0.030-0.080) ng/mL Urine Color Yellow (Yellow) Urine Appearance Clear (Clear) Urine pH 5.5 (4.6-8.0) Ur Specific Donovan 1.015 (1.005-1.030) Urine Protein Trace A (Negative) Urine Glucose (UA) Negative (Negative) mg/dL Urine Ketones Negative (Negative) Urine Blood Negative (Negative) Urine Nitrite Negative (Negative) Urine Bilirubin Negative (Negative) Urine Urobilinogen 0.2 (0.2) mg/dL Ur Leukocyte Esterase Moderate A (Negative) U Hyaline Cast (Auto) 3-5 A (0-2) /LPF Urine Microscopic RBC 0-2 (0-5) /HPF Urine Microscopic WBC 6-10 A (0-5) /HPF Ur Epithelial Cells None Seen (None Seen) /HPF Urine Bacteria None Seen (None Seen) /HPF Urine Culture Reflexed YES (NO) Influenza Type A Ag NEGATIVE (NEGATIVE) Influenza Type B Ag NEGATIVE (NEGATIVE) RSV (PCR) NEGATIVE (NEGATIVE) SARS-CoV-2 (PCR) NEGATIVE (NEGATIVE) 01/18/24 01/18/24 01/18/24 Range/Units 04:00 05:36 07:25 WBC (4.0-10.5) x10^3/uL RBC (4.1-5.6) x10^6/uL Hgb (12.5-18.0) g/dL Hct (42-50) % MCV (78-100) fL MCH (26-32) pg MCHC (32-36) g/dL RDW (11.5-14.0) % Plt Count (150-450) x10^3/uL MPV (7.5-11.0) fL Gran % (36.0-66.0) % Immature Gran % (Auto) (0.00-0.4) % Nucleat RBC Rel Count (0.00-0.1) % Eos # (Auto) (0-0.5) x10^3/uL Immature Gran # (Auto) (0.00-0.03) x10^3u/L Absolute Lymphs (auto) (1.0-4.6) x10^3/uL Absolute Monos (auto) (0.0-1.3) x10^3/uL Absolute Nucleated RBC (0.00-0.01) x10^3u/L Lymphocytes % (24.0-44.0) % Monocytes % (0.0-12.0) % Eosinophils % (0.00-5.0) % Basophils % (0.0-0.4) % Absolute Granulocytes (1.4-6.9) x10^3/uL Basophils # (0-0.4) x10^3/uL Sodium (135-145) mmol/L Potassium (3.5-5.1) mmol/L Chloride (98-107) mmol/L Carbon Dioxide (22-30) mmol/L Anion Gap (5-15) MEQ/L BUN (9-20) mg/dL Creatinine (0.66-1.25) mg/dL Estimated GFR ML/MIN Glucose (74-106) mg/dL Lactic Acid 1.7 (0.4-2.0) Calcium (8.4-10.2) mg/dL Magnesium (1.6-2.3) mg/dL Total Bilirubin (0.2-1.3) mg/dL AST (17-59) U/L ALT (0-50) U/L Alkaline Phosphatase (38-126) U/L Troponin I < 0.012 (0.000-0.033) ng/mL Serum Total Protein (6.3-8.2) g/dL Albumin (3.5-5.0) g/dL Amylase (30-110) U/L Lipase (23-300) U/L Procalcitonin 0.192 H (0.030-0.080) ng/mL Urine Color (Yellow) Urine Appearance (Clear) Urine pH (4.6-8.0) Ur Specific Donovan (1.005-1.030) Urine Protein (Negative) Urine Glucose (UA) (Negative) mg/dL Urine Ketones (Negative) Urine Blood (Negative) Urine Nitrite (Negative) Urine Bilirubin (Negative) Urine Urobilinogen (0.2) mg/dL Ur Leukocyte Esterase (Negative) U Hyaline Cast (Auto) (0-2) /LPF Urine Microscopic RBC (0-5) /HPF Urine Microscopic WBC (0-5) /HPF Ur Epithelial Cells (None Seen) /HPF Urine Bacteria (None Seen) /HPF Urine Culture Reflexed (NO) Influenza Type A Ag (NEGATIVE) Influenza Type B Ag (NEGATIVE) RSV (PCR) (NEGATIVE) SARS-CoV-2 (PCR) (NEGATIVE) 01/18/24 Range/Units 07:43 WBC (4.0-10.5) x10^3/uL RBC (4.1-5.6) x10^6/uL Hgb (12.5-18.0) g/dL Hct (42-50) % MCV (78-100) fL MCH (26-32) pg MCHC (32-36) g/dL RDW (11.5-14.0) % Plt Count (150-450) x10^3/uL MPV (7.5-11.0) fL Gran % (36.0-66.0) % Immature Gran % (Auto) (0.00-0.4) % Nucleat RBC Rel Count (0.00-0.1) % Eos # (Auto) (0-0.5) x10^3/uL Immature Gran # (Auto) (0.00-0.03) x10^3u/L Absolute Lymphs (auto) (1.0-4.6) x10^3/uL Absolute Monos (auto) (0.0-1.3) x10^3/uL Absolute Nucleated RBC (0.00-0.01) x10^3u/L Lymphocytes % (24.0-44.0) % Monocytes % (0.0-12.0) % Eosinophils % (0.00-5.0) % Basophils % (0.0-0.4) % Absolute Granulocytes (1.4-6.9) x10^3/uL Basophils # (0-0.4) x10^3/uL Sodium (135-145) mmol/L Potassium (3.5-5.1) mmol/L Chloride (98-107) mmol/L Carbon Dioxide (22-30) mmol/L Anion Gap (5-15) MEQ/L BUN (9-20) mg/dL Creatinine (0.66-1.25) mg/dL Estimated GFR ML/MIN Glucose (74-106) mg/dL Lactic Acid (0.4-2.0) Calcium (8.4-10.2) mg/dL Magnesium 1.8 (1.6-2.3) mg/dL Total Bilirubin (0.2-1.3) mg/dL AST (17-59) U/L ALT (0-50) U/L Alkaline Phosphatase (38-126) U/L Troponin I (0.000-0.033) ng/mL Serum Total Protein (6.3-8.2) g/dL Albumin (3.5-5.0) g/dL Amylase (30-110) U/L Lipase (23-300) U/L Procalcitonin (0.030-0.080) ng/mL Urine Color (Yellow) Urine Appearance (Clear) Urine pH (4.6-8.0) Ur Specific Donovan (1.005-1.030) Urine Protein (Negative) Urine Glucose (UA) (Negative) mg/dL Urine Ketones (Negative) Urine Blood (Negative) Urine Nitrite (Negative) Urine Bilirubin (Negative) Urine Urobilinogen (0.2) mg/dL Ur Leukocyte Esterase (Negative) U Hyaline Cast (Auto) (0-2) /LPF Urine Microscopic RBC (0-5) /HPF Urine Microscopic WBC (0-5) /HPF Ur Epithelial Cells (None Seen) /HPF Urine Bacteria (None Seen) /HPF Urine Culture Reflexed (NO) Influenza Type A Ag (NEGATIVE) Influenza Type B Ag (NEGATIVE) RSV (PCR) (NEGATIVE) SARS-CoV-2 (PCR) (NEGATIVE) - Radiology Impressions Radiology Exams & Impressions: Radiology Procedures Category Date Time Status CHEST 1 VIEW (PORTABLE) Stat Exams 01/18/24 03:20 Completed Assessment/Plan (1) Lower lobe pneumonia Current Visit: Yes Status: Acute Assessment & Plan: - ceftriaxone and azithromycin - IVF - 2lNC 94%, baseline RA - Procal 0.192 - CTA for further eval of CXR - BLL pneumonia- Barium swallow, ST eval for aspiration Code(s): J18.9 - PNEUMONIA, UNSPECIFIED ORGANISM (2) Lactic acidosis Current Visit: Yes Status: Acute Assessment & Plan: - LA 2.1 in ER - 1 LNS fluid bolus gave - repeat LA 1.7 Code(s): E87.20 - ACIDOSIS, UNSPECIFIED (3) Hypoxic respiratory failure Current Visit: Yes Status: Acute Qualifiers: Chronicity: acute Qualified Code(s): J96.01 - Acute respiratory failure with hypoxia Assessment & Plan: - 2:2 Pneumonia - 2lNC 94% - baseline RA Code(s): J96.91 - RESPIRATORY FAILURE, UNSPECIFIED WITH HYPOXIA (4) Essential hypertension Current Visit: No Status: Chronic Assessment & Plan: - continue lisinopril Code(s): I10 - ESSENTIAL (PRIMARY) HYPERTENSION (5) Prostate cancer Current Visit: Yes Status: Chronic Assessment & Plan: - Continue home med- may bring in to use, pharmacy to label. VTE: Lovenox Next of KIN: -Alejandra Mehtahorn [phone] D/C plan: 1-2 days Code status: Full Code(s): C61 - MALIGNANT NEOPLASM OF PROSTATE
[2024-01-18] MEDS: ENOXAPARIN SODIUM SQ SCH (10:28)
--- NOTE | 2024-01-18 12:02 | XRAY ---
Indication: Pneumonia. Weakness and short of breath. Abnormal chest x-ray. History of prostate cancer. Initial CT chest performed without contrast as ordered. Then conventional contrast enhanced CTA chest performed using 80 cc Isovue 370 contrast. 2-D sagittal and coronal reformatted images obtained. Additional 3-D reformatted images obtained using a separate workstation. Comparison: CT chest without contrast April 05, 2023. Thoracic aorta again mildly arteriosclerotic with mild tortuous descending aorta. Negative for aneurysm/dissection. Heart is not enlarged again with scattered coronary calcifications. Stable small mediastinal and right hilar calcified nodes. No pathologic mediastinal/hilar lymphadenopathy. Lungs again demonstrates diffuse paraseptal pulmonary emphysema, bibasilar subpleural cystic changes, tiny right posterior gutter calcified granuloma, and mild bilateral dependent atelectasis. No suspicious pulmonary mass/nodule, infiltrate, effusion, or pneumothorax. Bony thorax intact again with osteopenia, minimal degenerative changes throughout the spine, T6 sclerotic lesion, and small superior T8 Schmorl node. Limited upper abdomen demonstrates new incompletely visualized left upper quadrant heterogeneous soft tissue mass contiguous with stomach measuring at least 15.7 x 9.7 x 16.8 cm with central pockets of air collections. Findings concerning for malignancy. Left lobe liver also demonstrates new 1.8 x 3.0 cm heterogeneously enhancing mass adjacent to falciform ligament, probable metastasis. Again incidental cholecystectomy clips and 4.2 cm left/1.9 cm right renal renal cysts. Impression: 1. CTA chest with contrast again demonstrates mild arteriosclerotic and tortuous descending aorta without aneurysm/dissection. 2. CT chest without contrast again demonstrates diffuse paraseptal pulmonary emphysema, bibasilar subpleural cystic changes, and old granulomatous disease. No new/acute cardiopulmonary abnormalities. 3. Again chronic bony findings. 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 4. New incompletely visualized left upper quadrant abdominal soft tissue mass contiguous with stomach. Rule out gastric malignancy. 5. New heterogeneous enhancing hepatic mass worrisome for metastasis. 6. Incidental bilateral renal cysts.
--- NOTE | 2024-01-18 14:02 | XRAY ---
Indication: Possible aspiration pneumonia. Modified barium swallow study performed by the Department of speech therapy with fluoroscopic assistance provided. Patient ingested multiple consistencies of liquids and solids. Full report and recommendations will be reported separately. 1 minute 45 seconds fluoroscopy used.
[2024-01-19] MEDS: TYLENOL 325 MG PO PRN (00:44)
[2024-01-19 05:17] LABS: Hematocrit 30.2 % (42-50); Hemoglobin 9.7 g/dL (12.5-18.0); Mean Cell Volume 99.3 fL (78-100); Mean Corpuscular Hemoglobin 31.9 pg (26-32); Mean Corpuscular Hgb Concent. 32.1 g/dL (32-36); Mean Platelet Volume 10.8 fL (7.5-11.0); Platelet Count 294 x10^3/uL (150-450); Red Blood Count 3.04 x10^6/uL (4.1-5.6); Red Cell Distribution Width 13.9 % (11.5-14.0); White Blood Count 9.9 x10^3/uL (4.0-10.5)
[2024-01-19 05:45] LABS: ALBUMIN 2.1 g/dL (3.5-5.0); ANION GAP 11.5 MEQ/L (5-15); BILIRUBIN,TOTAL 0.6 mg/dL (0.2-1.3); Calcium 8.6 mg/dL (8.4-10.2); Creatinine 1 0.74 mg/dL (0.66-1.25); EST GLOMERULAR FILTRATION RATE 88.8 ML/MIN; Potassium 4.1 mmol/L (3.5-5.1)
[2024-01-19] MEDS: ROCEPHIN 1 GM / 100 ML NaCl 1 GM/100 ML IVPB IV SCH (05:49)
[2024-01-19] MEDS: Sodium Bicarbonate 50 MEQ/50 ML VIAL*** 150 MEQ in Dextrose 5%/Water IV Soln. 1000 ML 1... IV SCH (08:36)
[2024-01-19] MEDS: Zithromax 500 MG/ 250 ML NaCl Premix 500 MG/250 ML IVPB IV SCH (09:07)
--- NOTE | 2024-01-19 11:52 | PCM.NOTE ---
Date and Time: 01/19/24 1146 Subjective Assessment: 01/18/24 is a 83 year old male with PMHX of BPH, cataracts, HTN, hemorrhoids, and prostate CA. Pt reports he got up to use the bathroom last night and was too weak so lowered self down to floor, had to call ambulance for lift assist. Pt presented to ED with SOB and weakness. He did not fully fall, did not hit his head. He is not on any blood thinners. He has some very mild left knee pain. However no other injuries. Otherwise in his normal state of health. he was placed on 2lNC and O2 is 94%. He does not have oxygen at home. CXR + for pneumonia. K+ 3.4 replaced. Repeat lactic acid 1.7, 1 L NS bolus gave in the ER. Continue IVF and antibiotics. Pt denies CP, abd. pain, N/V/D. 01/19/24 Pt resting in chair. He feels much better today and no longer requiring oxygen. Discussed CT chest results and will reach out to oncology to discuss further. He reports recently having an OP scan prior to admission for further evaluation of prostate cancer. Co2 18 today and bicarb gtt started. He denies any overnight N/V/D. UTI gram negative- sensitivity pending. Continue antibiotics for pneumonia and UTI. He denies CP, SOB, abd. pain, N/V/D. Most likely will d/c tomorrow. - Review of Systems Constitutional: No Fever, No Chills Eyes: No Symptoms Ears, Nose, & Throat: No Symptoms Respiratory: No Cough, No Short Of Breath Cardiac: No Chest Pain, No Edema, No Syncope Abdominal/Gastrointestinal: No Abdominal Pain, No Nausea, No Vomiting, No Diarrhea Genitourinary Symptoms: No Dysuria Musculoskeletal: No Back Pain, No Neck Pain Skin: No Rash Neurological: No Dizziness, No Focal Weakness, No Sensory Changes Psychological: No Symptoms Endocrine: No Symptoms Hematologic/Lymphatic: No Symptoms Immunological/Allergic: No Symptoms Objective Exam General Appearance: no apparent distress, alert Neurologic Exam: alert, oriented x 3, cooperative, normal mood/affect, nml cerebellar function, sensation nml, No motor deficits Skin Exam: normal color, warm, dry Eye Exam: PERRL, EOMI, eyes nml inspection Ears, Nose, Throat Exam: normal ENT inspection, pharynx normal, moist mucous membranes Neck Exam: normal inspection, non-tender, supple, full range of motion Respiratory Exam: normal breath sounds, lungs clear, diminished breath sounds (BLLL), No respiratory distress Cardiovascular Exam: regular rate/rhythm, normal heart sounds Gastrointestinal/Abdomen Exam: soft, No tenderness, No mass Extremity Exam: normal inspection, normal range of motion Back Exam: normal inspection, normal range of motion, No CVA tenderness, No vertebral tenderness Male Genitalia Exam: deferred Rectal Exam: deferred Objective Data Vital Signs: Vital Signs - 24 hr Temp Pulse Resp BP Pulse Ox 01/19/24 08:00 97.3 F 72 16 119/77 93 L 01/19/24 07:29 95 01/19/24 04:00 96.8 F 67 20 107/68 93 L 01/18/24 23:53 98.4 F 78 26 H 138/64 93 L 01/18/24 20:00 97.8 F 77 23 114/80 96 01/18/24 19:32 96 01/18/24 16:00 97.6 F 68 17 126/72 94 L 01/18/24 11:47 97.8 F 75 20 121/78 96 Pain Assessment - Last Documented Pain Intensity 9 Pain Scale Used 0-10 Pain Scale Intake and Output: Intake & Output 01/16/24 01/17/24 01/18/24 01/19/24 11:59 11:59 11:59 11:59 Intake Total 340 2494 Balance 340 2494 Weight 74.7 kg Lab Results: Lab Results-Last 24 Hours 01/18/24 01/19/24 01/19/24 Range/Units 11:45 04:06 04:06 WBC 9.9 (4.0-10.5) x10^3/uL RBC 3.04 L (4.1-5.6) x10^6/uL Hgb 9.7 L (12.5-18.0) g/dL Hct 30.2 L (42-50) % MCV 99.3 (78-100) fL MCH 31.9 (26-32) pg MCHC 32.1 (32-36) g/dL RDW 13.9 (11.5-14.0) % Plt Count 294 (150-450) x10^3/uL MPV 10.8 (7.5-11.0) fL Sodium (135-145) mmol/L Potassium (3.5-5.1) mmol/L Chloride (98-107) mmol/L Carbon Dioxide (22-30) mmol/L Anion Gap (5-15) MEQ/L BUN (9-20) mg/dL Creatinine (0.66-1.25) mg/dL Estimated GFR ML/MIN Glucose (74-106) mg/dL Calcium (8.4-10.2) mg/dL Magnesium 1.7 (1.6-2.3) mg/dL Total Bilirubin (0.2-1.3) mg/dL AST (17-59) U/L ALT (0-50) U/L Alkaline Phosphatase (38-126) U/L Troponin I < 0.012 (0.000-0.033) ng/mL Serum Total Protein (6.3-8.2) g/dL Albumin (3.5-5.0) g/dL //24 Range/Units 04:06 WBC (4.0-10.5) x10^3/uL RBC (4.1-5.6) x10^6/uL Hgb (12.5-18.0) g/dL Hct (42-50) % MCV (78-100) fL MCH (26-32) pg MCHC (32-36) g/dL RDW (11.5-14.0) % Plt Count (150-450) x10^3/uL MPV (7.5-11.0) fL Sodium 137 (135-145) mmol/L Potassium 4.1 D (3.5-5.1) mmol/L Chloride 112 H (98-107) mmol/L Carbon Dioxide 18 L (22-30) mmol/L Anion Gap 11.5 (5-15) MEQ/L BUN 14 (9-20) mg/dL Creatinine 0.74 (0.66-1.25) mg/dL Estimated GFR 88.8 ML/MIN Glucose 81 (74-106) mg/dL Calcium 8.6 (8.4-10.2) mg/dL Magnesium (1.6-2.3) mg/dL Total Bilirubin 0.60 (0.2-1.3) mg/dL AST 23 (17-59) U/L ALT 10 (0-50) U/L Alkaline Phosphatase 100 (38-126) U/L Troponin I (0.000-0.033) ng/mL Serum Total Protein 5.0 L (6.3-8.2) g/dL Albumin 2.1 L (3.5-5.0) g/dL Radiology Exams: Radiology Procedures Category Date Time Status CHEST 1 VIEW (PORTABLE) Stat Exams 01/18/24 03:20 Completed CTA CHEST W AND/OR WO [CT] Routine Exams 01/18/24 09:52 Completed MODIFIED BARIUM SWALLOW (RAD) [MODIFIED BARIUM SWALLOW Exams 01/18/24 13:00 Completed EXAM] Routine Multi-Disciplinary Progress Notes: Multi-Disciplinary Progress Notes 01/18/24 15:34 Mod Barium Swallow Note by Dario#[id number],Cecile Modified Barium Swallow Study ST Modified Barium Swallow Study Start: 01/18/24 14:51 Freq: Status: Active Protocol: Document 01/18/24 14:52 BM (Rec: 01/18/24 15:34 BM [id number]) E-Sign 01/18/24 14:52 BM Modified Barium Swallow Reason for Assessment Primary Diagnosis J18.9 - PNEUMONIA, UNSPECIFIED ORGANISM Treatment Diagnosis #1 R13.12 - DYSPHAGIA, OROPHARYNGEAL PHASE Reason for Assessment PATIENT REFERRED FOR MBS STUDY DUE TO ADMITTING DX OF ASPIRATION PNEUMONIA WITH INFILTRATES IN LOWER LOBES. Onset Date 01/18/24 Date of Evaluation/SOC 01/18/24 Modified Barium Swallow View This evaluation was completed to assess the functioning of the oral and pharyngeal phases of swallowing and to determine if the patient is aspirating or at risk for aspiration. Modified Barium Swallow View Lateral View Consistencies Assessed Barium trials included: Thin Liquid via Spoon,Thin Liquid via Cup,Thin Liquid via Straw,[place] Liquid via Spoon ,Thin Honey Liquid via spoon, Honey Liquid via Spoon,Pudding Liquid via spoon,Pureed Food, Paste on a Cookie Aspiration Risk Aspiration Observed No Amount of Aspiration Observed None Patient considered at risk of aspiration Yes during oral intake Patient is at risk for aspiration After the swallow,Before the swallow,During the swallow Severity of Aspiration Risk Moderate to Severe Penetration into Laryngeal Vestibule No Penetration occured with None Reason for aspirational risk: PATIENT AT RISK FOR ASPIRATION BEFORE THE SWALLOW DUE TO DELAYED SWALLOW INITIATION RESULTING IN PREMATURE SPILLAGE TO LEVEL OF CRICOPHARYNGEOUS. PATIENT AT RISK FOR ASPIRATION DURING THE SWALLOW DUE TO LACK OF EPIGLOTTIC INVERSION WITH THIN, NECTAR, THIN HONEY, AND HONEY CONSISTENCY BARIUM. PATIENT AT RISK FOR ASPIRATION AFTER THE SWALLOW DUE TO RESIDUE REMAINING IN VALLECULAE, AT THE OPENING OF LARYNGEAL VESTIBULE, PYRIFORM SINUSES, AND AT THE LEVEL OF CRICOPHARYNGEOUS. RESIDUE INCONSISTENTLY CLEARED WITH ADDITIONAL SWALLOWS. 8-Point Penetration-Aspiration Scale ([place]osen[place]) 1.Material does not enter airway Yes Consistency Thin,[place] Thick,Thin Honey, Honey,Pudding,Pureed,Paste on a cookie Method of presentation Teaspoon,Cup,Straw Residue/Retention Residue Observed Valleculae Right,Valleculae Left,Pyriform Sinus Right, Pyriform Sinus Left, Aryepiglottic folds,Tongue Base Esophageal Function No Impairment (WFL) Other UNABLE TO FULLY ASSESS ESOPHAGEAL FUNCTION DURING THIS MBS STUDY DUE TO MOVEMENT LIMITATIONS OF EQUIPMENT UTILIZED DURING THIS ASSESSMENT. Assessment of Swallow Phases Oral Phase Labial Closure No Impairment (WFL) Bolus Formation Yes Bolus Control Pooling L/R No Impairment (WFL) Bolus Control under Tongue No Impairment (WFL) Bolus Control Scattered Loss No Impairment (WFL) Mastication Effectiveness No Impairment (WFL) A/P Bolus Propulsion No Impairment (WFL) Premature Spillage into: Pyriform Sinuses,Valleculae A/P Lingual Propulsion Delay No Impairment (WFL) Lingual Movement No Impairment (WFL) Residue Clearing/Sensitivity Moderate Impairment Aspiration No Swallow Initiation Delay Mild Impairment Swallow Delay Time (sec) 1 Other Oral Phase Observations PATIENT DEMONSTRATED DELAYED SWALLOW INITIATION RESULTING IN PREMATURE SPILLAGE WITH ALL CONSISTENCIES TRIALLED TO VALLECULAE, PYRIFORM SINUSES, AND PHARYNGEAL RECESSES. Pharyngeal Phase Base of Tongue Retraction No Impairment (WFL) Epiglottic Coverage Severe Impairment Laryngeal Elevation No Impairment (WFL) Reduced Anterior Laryngeal Movement No Laryngeal Closure No Impairment (WFL) Vallecular Retention Clearing Moderate Impairment Pharyn. Wall Residue Clearing Minimal Impairment Pyriform Sinus Retention Mild Impairment Penetration No Aspiration No Cricopharyngeal Dysfunction No Cough None Other Pharyngeal Phase Observation PATIENT WITH LARGE VOLUME OF RESIDUE REMAINING IN VALLECULAE AFTER SWALLOW COMPLETION, INSUFFICIENTLY CLEARED WITH ADDITIONAL DRY SWALLOW. SUFFICIENT CLEARING NOTED WITH LIQUID SWALLOW FOLLOWING. Clinical Interpretation Clinical Interpretation PATIENT WITH MODERATE OROPHARYNGEAL DYSPHAGIA WITHOUT ASPIRATION. Speech Therapy Teaching Record Teaching Summary Results/Recommendations Learning Preferences Discussion Readiness for Learning Accepting Teaching Methods Audiovisual Teaching Recipient Patient Response to Teaching Verbalize understanding ST Recommendations Diet Consistency Regular Liquid Consistency Regular Thin Follow-Up Primary Physician regarding findings/ Yes recommendations Safe Swallow Compensatory Strategies Compensatory Strategies Upright Position for all meals ,Remain upright after meals, Small bites and drinks,Dry swallows,Alternate solids/ liquids Medication Instructions Per Patient Preference Rehabilitation Potential: GOOD Signatures Speech Therapist Signature SUZIE, MS, CCC/CAGE OPERATOR Physician Signature DR Jonathan LITTLEJOHN, RADIOLOGIST Initialized on 01/18/24 15:34 - END OF NOTE Assessment/Plan (1) Lower lobe pneumonia Current Visit: Yes Status: Acute Code(s): J18.9 - PNEUMONIA, UNSPECIFIED ORGANISM (2) Lactic acidosis Current Visit: Yes Status: Acute Code(s): E87.20 - ACIDOSIS, UNSPECIFIED (3) Hypoxic respiratory failure Current Visit: Yes Status: Acute Qualifiers: Chronicity: acute Qualified Code(s): J96.01 - Acute respiratory failure with hypoxia Code(s): J96.91 - RESPIRATORY FAILURE, UNSPECIFIED WITH HYPOXIA (4) Essential hypertension Current Visit: No Status: Chronic Code(s): I10 - ESSENTIAL (PRIMARY) HYPERTENSION (5) Prostate cancer Current Visit: Yes Status: Chronic Assessment & Plan: (1) Lower lobe pneumonia Current Visit: Yes Status: Acute Assessment & Plan: - ceftriaxone and azithromycin - IVF - 2lNC 94%, baseline RA - Procal 0.192 - CTA for further eval of CXR - BLL pneumonia- Barium swallow, ST eval for aspiration 01/18 - IVF stopped - cont antibiotocs - CTA 01/17 Impression: 1. CTA chest with contrast again demonstrates mild arteriosclerotic and tortuous descending aorta without aneurysm/dissection. 2. CT chest without contrast again demonstrates diffuse paraseptal pulmonary emphysema, bibasilar subpleural cystic changes, and old granulomatous disease. No new/acute cardiopulmonary abnormalities. 3. Again chronic bony findings. 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 4. New incompletely visualized left upper quadrant abdominal soft tissue mass contiguous with stomach. Rule out gastric malignancy. 5. New heterogeneous enhancing hepatic mass worrisome for metastasis. 6. Incidental bilateral renal cysts. Code(s): J18.9 - PNEUMONIA, UNSPECIFIED ORGANISM (2) Lactic acidosis Current Visit: Yes Status: Acute Assessment & Plan: - LA 2.1 in ER - 1 LNS fluid bolus gave - repeat LA 1.7 Code(s): E87.20 - ACIDOSIS, UNSPECIFIED (3) Hypoxic respiratory failure Current Visit: Yes Status: Acute Qualifiers: Chronicity: acute Qualified Code(s): J96.01 - Acute respiratory failure with hypoxia Assessment & Plan: - 2:2 Pneumonia - 2lNC 94% - baseline RA 01/18 - RA 93% Code(s): J96.91 - RESPIRATORY FAILURE, UNSPECIFIED WITH HYPOXIA (4) Essential hypertension Current Visit: No Status: Chronic Assessment & Plan: - continue lisinopril Code(s): I10 - ESSENTIAL (PRIMARY) HYPERTENSION (5) Prostate cancer Current Visit: Yes Status: Chronic Assessment & Plan: - Continue home med- may bring in to use, pharmacy to label. 01/18 - will call oncology about CT findings and further plan of care - per pt pt is to hold prostate cancer medication while in the hospital as she discussed with oncology. Code(s): C61 - MALIGNANT NEOPLASM OF PROSTATE (6) UTI (urinary tract infection) Current Visit: Yes Status: Acute Assessment & Plan: - IV antibiotics - gram negative UA culture- sensitivity pending VTE: Lovenox Next of KIN: -Alejandra Williamson [phone] D/C plan: 1-2 days Code status: Full Code(s): N39.0 - URINARY TRACT INFECTION, SITE NOT SPECIFIED
--- NOTE | 2024-01-19 15:25 | XRAY ---
Indication: Left upper quadrant abdominal mass on CT. History of prostate cancer. Axial and coronal MRI abdomen performed using pre-and post T1 and T2 weighted sequences. 15 cc Dotarem contrast used. Comparison: None Study degraded by respiration artifact throughout. The left upper quadrant abdominal mass measures at least 17.4 x 12.3 x 16.6 cm in greatest AP, transverse, and CC projections respectively. It demonstrates predominantly peripheral enhancement. Mass does not appear to be gastric or splenic in etiology. No free fluid. Visualized stomach and bowel loops appear nonobstructed. Left lobe liver demonstrates 1.6 x 2.1 cm enhancing lesion probably metastatic. A few bilateral renal cysts, largest right lower pole measuring 3.7 cm. Largest left renal cyst is midpole measuring 2.4 cm. Remaining visualized liver, pancreas, spleen, adrenal glands, kidneys, and aorta are unremarkable. 1.3 cm left L2 enhancing lesion worrisome for metastasis. Impression: 1. Respiration artifact. 2. 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 Partial differential offered includes mesenteric desmoid tumor, lymphoma, metastatic disease, carcinoid tumor, desmoid tumor, gastrointestinal stromal tumors, and neurogenic tumors. 3. Small enhancing hepatic lesion probably metastatic. 4. Small enhancing L2 bone enhancement also probably metastatic in this patient with history of prostate cancer. 5. Incidental bilateral renal cysts.
[2024-01-20 04:47] LABS: Hematocrit 27.8 % (42-50); Hemoglobin 9.2 g/dL (12.5-18.0); Mean Cell Volume 95.9 fL (78-100); Mean Corpuscular Hemoglobin 31.7 pg (26-32); Mean Corpuscular Hgb Concent. 33.1 g/dL (32-36); Mean Platelet Volume 10.3 fL (7.5-11.0); Platelet Count 303 x10^3/uL (150-450); Red Cell Distribution Width 13.9 % (11.5-14.0); White Blood Count 8.6 x10^3/uL (4.0-10.5)
[2024-01-20 05:38] LABS: ALBUMIN 2.2 g/dL (3.5-5.0); BILIRUBIN,TOTAL 0.5 mg/dL (0.2-1.3); Calcium 8.2 mg/dL (8.4-10.2); Creatinine 1 0.62 mg/dL (0.66-1.25); EST GLOMERULAR FILTRATION RATE 93.7 ML/MIN; Potassium 3.3 mmol/L (3.5-5.1); Total Protein 5.2 g/dL (6.3-8.2)
[2024-01-20 07:52] VITALS: BP 174/83; PULSE 83; RESP 16; TEMP 96.6; O2SAT 91
[2024-01-20] MEDS: Klor Con PO SCH (08:04)
--- NOTE | 2024-01-20 08:54 | PCM.DS ---
Discharge Summary Date of Admission: 01/18/24 06:07 Date of Discharge: 01/20/24 Admitting Physician: OSMAR DE JESUS MD Primary Care Provider: VIRY SANCHES JUDSON Allergies Allergies No Known Drug Allergies Allergy (Verified 01/18/24 03:02) Hospital Summary - Hospital Course Hospital Course: 01/18/24 is a 83 year old male with PMHX of BPH, cataracts, HTN, hemorrhoids, and prostate CA. Pt reports he got up to use the bathroom last night and was too weak so lowered self down to floor, had to call ambulance for lift assist. Pt presented to ED with SOB and weakness. He did not fully fall, did not hit his head. He is not on any blood thinners. He has some very mild left knee pain. However no other injuries. Otherwise in his normal state of health. he was placed on 2lNC and O2 is 94%. He does not have oxygen at home. CXR + for pneumonia. K+ 3.4 replaced. Repeat lactic acid 1.7, 1 L NS bolus gave in the ER. Continue IVF and antibiotics. Pt denies CP, abd. pain, N/V/D. 01/19/24 Pt resting in chair. He feels much better today and no longer requiring oxygen. Discussed CT chest results and will reach out to oncology to discuss further. He reports recently having an OP scan prior to admission for further evaluation of prostate cancer. Co2 18 today and bicarb gtt started. He denies any overnight N/V/D. UTI gram negative- sensitivity pending. Continue antibiotics for pneumonia and UTI. He denies CP, SOB, abd. pain, N/V/D. Most likely will d/c tomorrow. 01/20/24 Pt resting in bed. He is not on Oxygen this morning and he explains he does not want to go home on any. Labs have improved and CO2 WNL. UC back + for e-coli. Discussed Pt care with pt's oncologist yesterday Dr. Dupont. MRI ordered for further evaluation of CT findings. Discussed MRI findings with pt and . Oncology would like pt to f/u OP in 2-3 weeks. Pt states he wants to make the appointment himself. Will continue OP antibiotics. He denies CP, SOb, abd. pain, N/V/D. - Vitals & Intake/Output Vital Signs: Vital Signs Temperature 96.6 F 01/20/24 07:52 Pulse Rate 83 01/20/24 07:52 Respiratory Rate 16 01/20/24 07:52 Blood Pressure 174/83 01/20/24 07:52 O2 Sat by Pulse Oximetry 91 L 01/20/24 07:52 Intake & Output: Intake & Output 01/17/24 01/18/24 01/19/24 01/20/24 11:59 11:59 11:59 11:59 Intake Total 340 2491 3194 Output Total 300 Balance 340 5210 3737 Weight 74.7 kg - Lab Result Diagrams: 01/20/24 04:11 01/20/24 04:11 Lab Results-Last 24 Hrs: Lab Results-Last 24 Hours 01/20/24 01/20/24 Range/Units 04:11 04:11 WBC 8.6 (4.0-10.5) x10^3/uL RBC 2.90 L (4.1-5.6) x10^6/uL Hgb 9.2 L (12.5-18.0) g/dL Hct 27.8 L (42-50) % MCV 95.9 (78-100) fL MCH 31.7 (26-32) pg MCHC 33.1 (32-36) g/dL RDW 13.9 (11.5-14.0) % Plt Count 303 (150-450) x10^3/uL MPV 10.3 (7.5-11.0) fL Sodium 138 (135-145) mmol/L Potassium 3.3 L (3.5-5.1) mmol/L Chloride 107 (98-107) mmol/L Carbon Dioxide 29 (22-30) mmol/L Anion Gap 5.0 (5-15) MEQ/L BUN 11 (9-20) mg/dL Creatinine 0.62 L (0.66-1.25) mg/dL Estimated GFR 93.7 ML/MIN Glucose 106 (74-106) mg/dL Calcium 8.2 L (8.4-10.2) mg/dL Total Bilirubin 0.50 (0.2-1.3) mg/dL AST 27 (17-59) U/L ALT 11 (0-50) U/L Alkaline Phosphatase 84 (38-126) U/L Serum Total Protein 5.2 L (6.3-8.2) g/dL Albumin 2.2 L (3.5-5.0) g/dL Micro Results-Entire Visit: Microbiology 01/18/24 03:45 Urine Culture - Final Urine, Void Escherichia Coli - Radiology Exams Ordered Rad Exams-Entire Visit: Radiology Procedures Category Date Time Status CTA CHEST W AND/OR WO [CT] Routine Exams 01/18/24 09:52 Completed MODIFIED BARIUM SWALLOW (RAD) [MODIFIED BARIUM SWALLOW Exams 01/18/24 13:00 Completed EXAM] Routine MRI ABD W & WO CONTRAST [MRI] Routine Exams 01/19/24 13:55 Completed - Procedures and Test Procedures and Tests throughout Hospitalization: Therapy Orders & Screens 01/18/24 05:05 Respiratory Therapy Consult ONCE Comment: Reason For Exam: 01/18/24 09:49 RT Miscellaneous Order ROUTINE Comment: Physician Instructions: Reason For Exam: eval and treat Diagnosis: Lower lobe pneumonia 01/18/24 09:51 ST Eval & Treat (MD Order) .as ordered Comment: Physician Instructions: Reason For Exam: Evaluate: possible aspiration pneumonia Treat: Yes Reason for Eval: possible aspiration pneumonia Diagnosis: Lower lobe pneumonia 01/18/24 09:57 Oxygen Nasal Cannula 2 lpm Comment: Diagnosis: Lower lobe pneumonia 01/20/24 07:55 RT Miscellaneous Order ROUTINE Comment: Physician Instructions: Reason For Exam: eval for home O2 please Diagnosis: Lower lobe pneumonia Discharge Exam General Appearance: no apparent distress, alert Neurologic Exam: alert, oriented x 3, cooperative, normal mood/affect, nml cerebellar function, sensation nml, No motor deficits Eye Exam: PERRL, EOMI, eyes nml inspection Ears, Nose, Throat Exam: normal ENT inspection, pharynx normal, moist mucous membranes Neck Exam: normal inspection, non-tender, supple, full range of motion Respiratory Exam: normal breath sounds, lungs clear, No respiratory distress Cardiovascular Exam: regular rate/rhythm, normal heart sounds Gastrointestinal/Abdomen Exam: soft, No tenderness, No mass Male Genitalia Exam: deferred Rectal Exam: deferred Back Exam: normal inspection, normal range of motion, No CVA tenderness, No vertebral tenderness Extremity Exam: normal inspection, normal range of motion Skin Exam: normal color, warm, dry Final Diagnosis/Problem List - Final Discharge Diagnosis/Problem (1) Lower lobe pneumonia Current Visit: Yes Status: Acute Code(s): J18.9 - PNEUMONIA, UNSPECIFIED ORGANISM (2) Lactic acidosis Current Visit: Yes Status: Acute Code(s): E87.20 - ACIDOSIS, UNSPECIFIED (3) Hypoxic respiratory failure Current Visit: Yes Status: Acute Code(s): J96.91 - RESPIRATORY FAILURE, UNSPECIFIED WITH HYPOXIA (4) Essential hypertension Current Visit: No Status: Chronic Code(s): I10 - ESSENTIAL (PRIMARY) HYPERTENSION (5) Prostate cancer Current Visit: Yes Status: Chronic Code(s): C61 - MALIGNANT NEOPLASM OF PROSTATE (6) UTI (urinary tract infection) Current Visit: Yes Status: Acute Assessment & Plan: (1) Lower lobe pneumonia Current Visit: Yes Status: Acute Assessment & Plan: - ceftriaxone and azithromycin - IVF - 2lNC 94%, baseline RA - Procal 0.192 - CTA for further eval of CXR - BLL pneumonia- Barium swallow, ST eval for aspiration- agree with results and further plan of care 01/18 - IVF stopped - cont antibiotics - CTA 01/17 Impression: 1. CTA chest with contrast again demonstrates mild arteriosclerotic and tortuous descending aorta without aneurysm/dissection. 2. CT chest without contrast again demonstrates diffuse paraseptal pulmonary emphysema, bibasilar subpleural cystic changes, and old granulomatous disease. No new/acute cardiopulmonary abnormalities. 3. Again chronic bony findings. 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 4. New incompletely visualized left upper quadrant abdominal soft tissue mass contiguous with stomach. Rule out gastric malignancy. 5. New heterogeneous enhancing hepatic mass worrisome for metastasis. 6. Incidental bilateral renal cysts. 01/19 - Pt on RA 95% today - Did qualify for oxygen yesterday per RT, however pt denisa not want this at home. Code(s): J18.9 - PNEUMONIA, UNSPECIFIED ORGANISM (2) Lactic acidosis Current Visit: Yes Status: Acute Assessment & Plan: - LA 2.1 in ER - 1 LNS fluid bolus gave - repeat LA 1.7- resolved Code(s): E87.20 - ACIDOSIS, UNSPECIFIED (3) Hypoxic respiratory failure Current Visit: Yes Status: Acute Qualifiers: Chronicity: acute Qualified Code(s): J96.01 - Acute respiratory failure with hypoxia Assessment & Plan: - 2:2 Pneumonia - 2lNC 94% - baseline RA 01/18 - RA 93% 01/19 - RA 95% Code(s): J96.91 - RESPIRATORY FAILURE, UNSPECIFIED WITH HYPOXIA (4) Essential hypertension Current Visit: No Status: Chronic Assessment & Plan: - continue lisinopril Code(s): I10 - ESSENTIAL (PRIMARY) HYPERTENSION (5) Prostate cancer Current Visit: Yes Status: Chronic Assessment & Plan: - Continue home med- may bring in to use, pharmacy to label. 01/18 - will call oncology about CT findings and further plan of care - per pt pt is to hold prostate cancer medication while in the hospital as she discussed with oncology. - MRI of abd ordered after discussing plan of care with oncology- Dr. Larsen would like pt to f/u in 2-3 weeks 01/19 - MRI abd 01/18 1. Respiration artifact. 2. 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 Partial differential offered includes mesenteric desmoid tumor, lymphoma, metastatic disease, carcinoid tumor, desmoid tumor, gastrointestinal stromal tumors, and neurogenic tumors. 3. Small enhancing hepatic lesion probably metastatic. 4. Small enhancing L2 bone enhancement also probably metastatic in this patient with history of prostate cancer. 5. Incidental bilateral renal cysts. - Pt to f/u with oncology to discuss results more. Findings discussed with pt and today. - Pt wants to make his own f/u appointment OP with oncology Code(s): C61 - MALIGNANT NEOPLASM OF PROSTATE (6) UTI (urinary tract infection) Current Visit: Yes Status: Acute Assessment & Plan: - IV antibiotics - gram negative UA culture- sensitivity pending 01/19 - UC + e-coli Code(s): N39.0 - URINARY TRACT INFECTION, SITE NOT SPECIFIED - Discharge Discharge Date: 01/20/24 Disposition: Home, Self-Care Condition: Stable Prescriptions: New levoFLOXacin [Levofloxacin] 750 mg PO DAILY 5 Days #5 tablet Continue Multivitamin [Multivitamins] 1 cap PO DAILY Lisinopril 10 mg [Zestril 10 MG] 20 mg PO DAILY Enzalutamide [Xtandi] 80 mg PO UD Haja/D3/Mag11/Zinc/[employer] Intern/Ernesto/Bor [Caltrate 600+D Plus Tablet] 1 tab PO DAILY Additional Instructions: SIT UPRIGHT ANY TIME YOUR EATING AND STAY UPRIGHT AFTERWARDS WELL, TAKE SMALL BITES AND DRINKS, ALTERNATE LIQUIDS AND SOLIDS WHEN EATING, SWALLOW DRY Follow up with: ADA DUPONT [COURTESY STAFF] - Call for Appointment (FOLLOW-UP IN 2-3 WEEKS. ) VIRY SANCHES MD [Primary Care Provider] - 01/31/24 10:45 am
[2024-01-20] MEDS: Zestril 20 MG PO SCH (09:52)
[2024-01-20] MEDS: Zithromax 250 MG TABLET PO ONE (11:39)
== END 2024-01-20 12:19 | disposition home or self-care (01) ==
LOC: ED 03:00 → MED SURG 06:07
PROVIDERS: ADMIT Internal Medicine; ATTEND Internal Medicine
DX: J18.9 Pneumonia, unspecified organism (principal); E87.20 Acidosis, unspecified; J96.91 Respiratory failure, unspecified with hypoxia; I10 Essential (primary) hypertension; C61 Malignant neoplasm of prostate; N39.0 Urinary tract infection, site not specified; N40.0 Benign prostatic hyperplasia without lower urinary tract symptoms; M25.562 Pain in left knee; Z79.899 Other long term (current) drug therapy; Z20.828 Contact with and (suspected) exposure to other viral communicable diseases
CPT/HCPCS: 0241U; 36000; 36415; 71045; 71275; 74183; 74230; 80053; 81001; 82150; 83605; 83690; 83735; 84145; 84484; 85025; 85027; 87077; 87086; 87186; 92611; 93005; 93268; 94760; 96365; 96368; 99285; G0378; Q3014; J0456; J0696; J1650; A9270-GY